=== PATIENT | male | born 1960 | race Caucasian/White ===

== ENCOUNTER 2024-09-25 13:45 | Outpatient (RCR) | payer BC, SELFPAY | END 2024-11-06 16:16 | disposition home or self-care (01) | PROVIDERS: PCP Family Medicine; Visit Provider Family Medicine | DX: M54.2 Cervicalgia (principal); G89.29 Other chronic pain; M79.12 Myalgia of auxiliary muscles, head and neck; Z51.89 Encounter for other specified aftercare | CPT/HCPCS: 97110; 97112; 97161 ==

== ENCOUNTER 2024-10-30 17:49 | Emergency (ER) | payer BC, SELFPAY ==
--- OUTSIDE RECORDS SUMMARY | 2024-10-30 17:51 | XMS_ITS | Referral Summary ---
Author Organization [facility] Address [address] [place] [address] Care Team Providers Care Head Orthopedic Team Physician Name Role Phone Gordo Pollard MD Primary Care Provider Unavail able Allergies Active Allergy Reactions Criticality Noted Date Comments Dust/Dust Mites (Robert) Wheezing 11/06/2016 Ragweed Pollen 06/01/2019 Medications mesalamine (ASACOL HD) 800 mg oral tablet, delayed release Take 3,200 mg by mouth once daily. Active fexofenadine (TANG ALLERGY) 180 mg oral tablet Take 180 mg by mouth once daily. Active fluticasone HFA 110mcg/puff (FLOVENT) 110 mcg/actuation Inhl HFAA inhaler Inhale 2 puffs once daily. Active albuterol HFA (PROVENTIL;SOCORRO SUSAN HFA) 90 mcg/actuation Inhl inhaler Inhale 2 puffs every 4 (four) hours as needed. Active cholecalciferol, vitamin D3, 1000 unit (25 mcg) oral tablet Take 25 mcg by mouth once daily. Unsure of dose Active oxyCODONE, immediate release, (ROXICODONE) 5 mg oral tablet Take 1 tablet (5 mg) by mouth every 6 (six) hours as needed. 10 tablet 08/15/2019 12:42 PM SENIOR CAREGIVER 9 Active oxyCODONE-acetam inophen (PERCOCET) 5-325 mg oral tablet Take 1-2 tablets by mouth every four (4) to six (6) hours as needed for Pain. 3 tablet 08/22/2019 2:38 PM SENIOR CAREGIVER 9 Active doxycycline monohydrate (ADOXA) 100 mg oral Take 1 each (100 mg) by mouth twice a day with breakfast and dinner. 20 tablet 08/22/2019 2:38 PM SENIOR CAREGIVER 9 Active Active Problems Problem Noted Date Diagnosed Date S/P prostatectomy 11/09/2016 Crohn's disease 11/09/2016 Prostate cancer 11/09/2016 Immunizations Name Administration Dates Next Due Influenza recombinant (FluBlok Quadrivalent PF) 08/15/2019 Influenza split virus quadrivalent 07/09/2016 Social History Tobacco Use Types Packs/Day Years Used Date Smoking Tobacco: Former Cigarettes Q uit: 01/05/2018 Smokeless Tobacco: Never Tobacco Cessation:Ready to Q uit: Yes Alcohol Use Standard Drinks/Week Comments Yes 0 (1 standard drink = 0.6 oz pur e alcohol) 2 beers 4 nights a week Sex and Gender Information Value Date Recorded Sex Assigned at Not on file Legal Sex Male 11:00 AM CDT Gender Identity Not on file Sexual Orientation Not on file Last Filed Vital Signs Vital Sign Reading Time Taken Comments Blood Pressure 150/82 08/22/2019 4:30 PM SENIOR CAREGIVER Pulse 70 08/22/2019 4:30 PM SENIOR CAREGIVER Temperature 36.5 C (97.7 F) 08/22/2019 4:30 PM SENIOR CAREGIVER Respiratory Rate 12 08/22/2019 4:30 PM SENIOR CAREGIVER Oxygen Saturation 95% 08/22/2019 4:30 PM SENIOR CAREGIVER Inhaled Oxygen Concentration - - Weight 93 kg (205 lb 0.4 oz) 08/22/2019 11:00 AM SENIOR CAREGIVER Height 177.8 cm (5' 10) 08/22/2019 11:16 AM SENIOR CAREGIVER Body Mass Index 29.42 08/22/2019 11:00 AM SENIOR CAREGIVER Plan of Treatment Not on file Medical Devices Implanted Type Area Ticketing Agent Device Identifier Shelf Expiration Date Model / Serial / Lot Cl [place] Gustabo - [id number] Implanted:Qty: 1 on 08/14/2019 by Nick Mahajan MD at [facility] Penile N/A: Penis Coloplast Isabelle 04/26/2024 [id number] / / [id number] Assembly Kit Gustabo - [id number] Implanted:Qty: 1 on 08/14/2019 by Nick Mahajan MD at [facility] Supply N/A: Penis Coloplast Isabelle 04/27/2024 [id number] / / [id number] Titan, Infrapubic Zero Degree Angle Cylinder Set With Pump Implanted:Qty: 1 on 08/14/2019 by Nick Mahajan MD at [facility] N/A: Penis Coloplast Isabelle [id number] 12/15/2023 [id number] / / [id number] Insurance [place] [id number] [facility] [place] [address] Advance Directives For more information, please contact: [phone] * Full Code (Latest Code Status on File) Date Activated Date Inactivated Comments 11/09/2016 10:46 PM 11/13/2016 4:52 PM Question Answer Comments How was code status determined? Patient Care Teams Head Orthopedic Team Physician Relationship Specialty Start Date End Date Gordo Pollard MD PCP - General 12/16/18
--- OUTSIDE RECORDS SUMMARY | 2024-10-30 17:51 | XMS_ITS | Clinical Summary ---
Author Organization [facility] Address [address] [place] [address] Care Team Providers Care Fish Cake Maker Name Role Phone Gordo Pollard MD Primary [...] as needed. 10 tablet 08/15/2019 12:42 PM ULTIMATE HOOPS REFEREE 9 Active oxyCODONE-acetam inophen (PERCOCET) 5-325 mg oral tablet Take 1-2 tablets by mouth every four (4) to six (6) hours as needed for Pain. 3 tablet 08/22/2019 2:38 PM ULTIMATE HOOPS REFEREE 9 Active doxycycline monohydrate (ADOXA) 100 mg oral Take 1 each (100 mg) by mouth twice a day with breakfast and dinner. 20 tablet 08/22/2019 2:38 PM ULTIMATE HOOPS REFEREE 9 Active Active Problems Problem Noted Date Diagnosed Date S/P prostatectomy 11/09/2016 Crohn's disease 11/09/2016 Prostate cancer 11/09/2016 Immunizations Name Administration Dates Next Due Influenza recombinant (FluBlok Quadrivalent PF) 08/15/2019 Influenza split virus quadrivalent 07/09/2016 Family History Medical History Relation Comments Prostate Cancer Brother Diabetes Father High Blood Pressure Father Cervical Cancer Mother Relation Status Comments Brother Father Mother Social History Tobacco Use Types Packs/Day Years [...] Comments Blood Pressure 150/82 08/22/2019 4:30 PM ULTIMATE HOOPS REFEREE Pulse 70 08/22/2019 4:30 PM ULTIMATE HOOPS REFEREE Temperature 36.5 C (97.7 F) 08/22/2019 4:30 PM ULTIMATE HOOPS REFEREE Respiratory Rate 12 08/22/2019 4:30 PM ULTIMATE HOOPS REFEREE Oxygen Saturation 95% 08/22/2019 4:30 PM ULTIMATE HOOPS REFEREE Inhaled Oxygen Concentration - - Weight 93 kg (205 lb 0.4 oz) 08/22/2019 11:00 AM ULTIMATE HOOPS REFEREE Height 177.8 cm (5' 10) 08/22/2019 11:16 AM ULTIMATE HOOPS REFEREE Body Mass Index 29.42 08/22/2019 11:00 AM ULTIMATE HOOPS REFEREE Plan of Treatment Health Maintenance Due Date Last Done Comments AAA Ultrasound Screening 1960 Colonoscopy 1960 Hepatitis C Screening 1960 Lipid Screening 1960 Depression Assessment (PHQ-2) 1959 Pneumococcal 50+ Years (1 of 1 - PCV) 02/29/2008 Zoster Vaccine (1 of 2) 02/29/2008 Yearly Review of HCD 08/19/2020 08/20/2019, 07/06/2019, 04/24/2019, Additional history exists COVID-19 Vaccine ( - 2023-2 5 season) 2024 Influenza Vaccine (#1) 2024 9, 09/02/2016, 07/09/2016, Additional history exists Adult Tetanus Booster 01/17/2025 01/17/2015 , 08/26/2003, 05/21/1991 RSV Vaccines (1 - 1-dose 75+ series) 2033 Medical Devices Implanted Type Area Electrical Prospecting Supervisor Device Identifier Shelf Expiration Date Model / Serial / Lot Cl [employer] Titan - [id number] Implanted:Qty: 1 on 08/14/2019 by Nick Mahajan MD at [facility] Penile N/A: Penis Coloplast Isabelle 04/26/2024 [id number] / / [id number] Assembly Kit Titan - [id number] Implanted:Qty: 1 on 08/14/2019 by Nick Mahajan MD at [facility] Supply N/A: Penis Coloplast Isabelle 04/27/2024 [id number] / / [id number] Titan, Infrapubic Zero Degree Angle Cylinder Set With Pump Implanted:Qty: 1 on 08/14/2019 by Nick Mahajan MD at [facility] N/A: Penis Coloplast Isabelle [id number] 12/15/2023 [id number] / / [id number] [place] [address] [place] [address] Advance Directives For more information, please contact: [phone] * Full Code (Latest Code Status on File) Date Activated Date Inactivated Comments 11/09/2016 10:46 PM 11/13/2016 4:52 PM Question Answer Comments How was code status determined? Patient Care Teams Fish Cake Maker Relationship Specialty Start Date End Date Gordo Pollard MD PCP - General 12/16/18
--- OUTSIDE RECORDS SUMMARY | 2024-10-30 17:51 | XMS_ITS | Clinical Summary ---
Author Organization [facility] Address [place], [place] [address] Care Team Providers Care Shift Coordinator Name Role Phone Fermin Glynn MD Primary Care Provider Allergies Active Allergy Reactions Criticality Noted Date Comments Dust Mites Low 04/16/2011 Pollen Extracts Runny Nose 01/02/2019 Ragweed Pollen Wheezing 05/26/2019 Medications fexofenadine (TANG) 180 mg tablet Take 1 tablet by mouth. One tab PO Q HS X 2 month supply 60 tablet 3 02/22/20 11 Active ipratropium (ATROVENT NASAL) 21 mcg (0.03 %) nasal sprayIndications :Post-nasal drip USE 2 SPRAYS IN EACH NOSTRIL THREE TIMES DAILY 90 mL 3 02/10/20 23 Active fluticasone (50 mcg per actuation) nasal solution (FLONASE) Inhale 1 [place] into affected nostril(s) once daily. Active CPAPIndications: IACHA (obstructive sleep apnea) CPAP machine for home use at pressure 7-15cmw, CPAP mask- mask of choice, fit to comfort one per 3 months 1 Each 11 01/30/20 24 Active mesalamine (LIALDA) 1.2 gram delayed-release tabletIndication s:Crohn's disease of both small and large intestine without complication (HC) Take 4 Tablets (4.8 g) by mouth once daily with a meal. 360 Tablet 3 03/18/20 24 Active fluticasone propion-salmeter oL (Wixela Inhub) 250-50 mcg/Dose diskus inhalerIndicatio ns:Mild persistent asthma, unspecified whether complicated INHALE 1 PUFF BY MOUTH TWICE DAILY 180 Each 3 08/10/20 24 Active citalopram (CELEXA) 20 mg tabletIndication s:Vitamin D deficiency Take 1 Tablet (20 mg) by mouth once daily in the morning. 90 Tablet 3 09/08/20 24 Active albuterol HFA (PRO-AIR; VENTOLIN; PROVENTIL) 90 mcg/actuation inhalerIndicatio ns:Mild persistent asthma without complication INHALE 1 TO 2 PUFFS BY MOUTH EVERY 4 HOURS NEEDED FOR SHORTNESS OF BREATH 6.7 g 1 09/11/20 24 Active omeprazole (PRILOSEC) 20 mg Delayed-Release capsuleIndicatio ns:Gastroesophag eal reflux disease with esophagitis without hemorrhage Take 1 Capsule (20 mg) by mouth once daily before a meal. Take 30-60 minutes before a meal/food once a day. 90 Capsule 3 10/19/19 25 Active polyethylene glycol-electroly te (GOLYTELY) 236-22.74-6.74 -5.86 gram suspensionIndica tions:Encounter for screening colonoscopy Drink 2 liters (half the bottle) the day before colonoscopy and 2 liters (remaining prep) 6 hours prior to colonoscopy appointment. 4000 mL 09/09/20 24 025 Discontin ued(*Med complete/ Regimen complete/ Level of care change) predniSONE (DELTASONE) 20 mg tabletIndication s:Bronchospasm 2 tablets p.o. daily for 5 days. 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 08/28/2022 Crohn's disease of small intestine without compl ication 04/24/2021 Overview (03/12/2023): Colonoscopy 03/2023 mild colitis, repeat in 3 years Anxiety and depression 11/02/2020 S/P prostatectomy 2017 for cancer 12/08/2016 Seasonal allergies 01/17/2010 Asthma Resolved Problems Problem Noted Date Diagnosed Date Resolved Date Earlobe lesion, right 03/11/20242023 Sensorineural hearing loss ( SNHL) of left ear with restricted hearing of right ear 08/28/202212/2023 Unspecified sinusitis (chronic) 04/26/2011 04/24/2021 Hypertrophy of prostate with urinary obstruction and other lower urinary tract symptoms (LUTS) 09/21/2008 11/02/2020 Tobacco use disorder 09/21/2008 021 Regional enteritis of large intestine 01/21/2008 04/24/2021 Overview (05/19/2020): Colonoscopy 09/2013 minimal Crohn's disease repeat in 3 years Colonoscopy 09/2016 mild Crohn's colitis, repeat in 3 years Colonoscopy 05/2020 trace inflammation, repeat in 3 years Encounters Date Type Department Care Team Description 10/30/2024 Nurse Triage [facility] [address] [place] [address] Fermin Glynn MD Laceration 10/19/2024 Orders Only [facility] [address] [place] [address] Conrad Mccoy MD <No scans attached> 10/14/2024 9:30 AM [facility] - 10/14/2024 11:59 PM [facility] Hospital Encounter Conrad Mccoy MD 10/14/2024 Lab Requisition [facility] [phone] Conrad Mccoy MD 10/14/2024 Orders Only [place] [address] [place] [id number] Conrad Mccoy MD <No scans attached> 10/14/2024 Orders Only [facility] [address] [place] [address] Fermin Glynn MD 1 scan: (1-Ord) [facility], UPPER GI ENDOSCOPY, 10/14/2024 10/14/2024 Surgery [place] [id number] [place] [address] Conrad Mccoy MD colonoscopy, screening 10/09/2024 10:30 AM [facility] Office Visit [facility] [address] [place] [address] Fermin Glynn MD Preoperative Exam (DOS: 10/14/2024, EGD, Dr. Mccoy, [facility]) 10/09/2024 Travel 10/06/2024 Telephone [facility] [address] [place] [address] Conrad Mccoy MD Appointment Reminder (EGD at [facility] 10/14/24) 10/05/2024 Travel 09/11/2024 Refill [facility] [address] [place] [address] Fermin Glynn MD Refill Request (Albuterol Hfa) 09/08/2024 11:45 AM [facility] Office Visit [facility] [address] [place] [address] Fermin Glynn MD Physical (64 year old); Sinus Problem (Post nasal drip, sinus congestion, cough, wheezing, started about 3 weeks ago) 09/08/2024 Telephone [facility] [address] [place] [address] Conrad Mccoy MD Procedure 09/08/2024 Travel 08/20/2024 10:45 AM [facility] Orders Only [facility] [address] [place] [address] Lab 08/20/2024 Travel 08/07/2024 Refill [facility] [address] [place] [address] Fermin Glynn MD Refill Request (Wixela Inhub) 08/07/2024 Refill [facility] [address] [place] [address] Fermin Glynn MD Refill Request (Wixela Inhub) 08/03/2024 Travel from Last 3 Months Immunizations Name Administration Dates Next Due COVID-19 VACCINE SPIKEVAX (M ODERNA 50MCG/0.5ML) 12YO+ PFS 09/08/2024 COVID-19 vaccine (Moderna 100mcg/0.5mL) PF, MDV 08/30/2021,01/25/2021,12/19/2020 COVID-19 vaccine (Pfizer-Bio NTech 30mcg/0.3mL) 12YO+ VIDYA-SUCROSE PF, MDV 01/11/2022 INFLUENZA, IIV3 PF (AGE >= 6 MO) 08/15/2019 Influenza Virus, Unspecified 07/09/2016 Influenza, IIV3 (Age 6-35 mos) 09/02/2016 Influenza, IIV3 (Age >=3 years) 07/09/2016,09/09 Influenza, IIV4 08/29/2022,,08/08/2020,2018,11/21/2018 Influenza, Inactivated IIV3 (Age 65+ Years) Preserv Free 07/10/2024 Pneumococcal Conj 20-valent (Prevnar 20) 01/11/2022 Td (Age >=7 Years) 08/26/2003,05/21/1991 Tdap 04/18/2021,01/17/2015 Zoster (Shingrix-RZV, recombinant) 07/05/2020, Family History Medical History Relation Name Comments Cancer-prostate Brother 1 Good Health Brother 4 Good Health Brother 5 Good Health Brother 6 Diabetes Father Hypertension Father Cancer Mother cervical GI Disease Mother radiation injur y to bowel Psychiatric illness Sister 4 anxiety Good Health Sister 5 Good Health Sister 6 Good Health Son 2 Anesthesia Problem No Family History Relation Name Status Comments Brother 1 Alive Brother 2 Alive Brother 3 Alive Brother 4 Brother 5 Brother 6 Father Alive Mother Alive Sister 1 Alive Sister 2 Alive Sister 3 Alive Sister 4 Sister 5 Sister 6 Son 1 Alive Son 2 Social History Tobacco Use Types Packs/Day Years Used Date Smoking Tobacco: Former Cigarettes 0.5 25 0 01/05/1993 - 01/05/2018 Smokeless Tobacco: Never Tobacco Cessation:Counseling Given: No Alcohol Use Standard Drinks/Week Comments Yes 7 (1 standard drink = 0.6 oz pure alcohol) one to two beers 3-4 days per week PHQ-2 Answer Date Recorded PHQ-2 TOTAL SCORE 0 07/10/2024 Social Connections Answer Date Recorded Do you often feel lonely or isolated from those around you? 0 10/09/2024 Financial Resource Strain Answer Date R ecorded Difficulty of Paying Living Expenses 3 10/09/2024 Difficulty of Paying Living Expenses Not on file 10/09/2024 Food Insecurity Answer Date Recorded Do you worry your food will run out before you are able to buy more? 1 10/09/2024 Transportation Needs Answer Date Record ed Does lack of transportation keep you from medica l appointments? 1 10/09/2024 Does lack of transportation keep you from work, meetings or getting things that you need? 1 10/09/2024 Housing Stability Answer Date Recorded What is your housing situation today? 1 10/09/2024 Interpersonal Safety Answer Date Record ed Are you being hit, kicked, p ushed or yelled at (see row info)? Unable to assess, family/SO in room. 03/11/2024 Interpersonal Safety Abuse 12 - 18 Not on file 03/11/2024 Interpersonal Safety Ambulat ory Vulnerability Not on file 03/11/2024 Utilities Answer Date Recorded Do you have trouble paying f or utilities (for example, heat, electricity, water, phone)? 1 10/09/2024 Sex and Gender Information Value Date Recorded Sex Assigned at Not on file Legal Sex Male 5:49 AM [facility] Gender Identity Not on file Sexual Orientation Not on file Occupation Industry Job Start Date Job End Date Not on file Not on file Not on file Not on file Obstetrics History Last Filed Vital Signs Vital Sign Reading Time Taken Comments Blood Pressure 134/80 10/09/2024 10:32 AM [facility] Pulse 59 10/09/2024 10:32 AM [facility] Temperature 36.7 C (98 F) 03/12/2024 8:00 AM CDT Respiratory Rate 16 03/12/2024 8:00 AM CDT Oxygen Saturation 99% 10/09/2024 10:32 AM [facility] Inhaled Oxygen Concentration - - Weight 98.5 kg (217 lb 3.2 oz) 10/09/2024 10:32 AM [facility] Height 177 cm (5' 9.69) 10/09/2024 10:32 AM [facility] Body Mass Index 31.45 10/09/2024 10:32 AM [facility] Plan of Treatment Health Maintenance Due Date Last Done Comments RSV vaccine for adults or (1 - Risk 60-74 years 1-dose series) 2018 AAA screening age 65-74 2023 COVID-19 vaccine series ( season) 2024 09/08/2024, 08/29/2022, 01/11/2022, Additional history exists Depression screening for age 12+ 07/10/2025 07/10/2024, 04/24/2021, 11/30/2020, Additional history exists BMI (ht and wt on same day) for age 18+ 10/09/2025 10/09/2024, 09/08/2024, 07/10/2024, Additional history exists Colonoscopy through age 75 03/05/202603/05, 03/05/2023, 05/18/2020, Additional history exists Lipids for age 45-75 08/20/2029 08/20/2024, 10/29/2022, 04/24/2021, Additional history exists Tetanus booster 04/18/2031 04/18/2021, 01/05, 08/26/2003, Additional history exists Hepatitis C screening for ag e 18-79 Completed 04/01/2018 Zoster (shingles) series for age 50+ Completed 07/05/2020, 04/22/2020 Tdap Completed 04/18/2021, 01/17/2015 Pneumococcal series for age 50+ Completed 2 Influenza for age 65+ Completed 07/10/2024 , 08/29/2022, 07/22/2021, Additional history exists Medical Devices Implanted Type Area Cable 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 Determine d: Nose [employer] 09/03/2025 [id number] / [id number] Procedures Procedure Name Priority Date/Time Associated Diagnosis Comments LAB TRACKING EVENT Routine 10/14/2024 10:57 AM [facility] PATH TISSUE EXAM Routine 10/14/2024 10:57 AM [facility] ESOPHAGOGASTRODUODENOSCOPY Routine 10/14 12:00 AM [facility] Dysphagia, unspecified type BASIC METABOLIC PANEL Routine 08/20/2024 10:40 AM [facility] Elevated blood-pressure reading without diagnosis of hypertension LIPID PANEL W REFLEX MEASURE D LDL Routine 08/20/2024 10:40 AM [facility] Hyperlipidemia, unspecified hyperlipidemia type PSA (TOTAL) ([facility]) Routine 08/20/2024 10:40 AM [facility] Prostate cancer (HC) COLONOSCOPY 03/05/2023 8:31 AM CDT ANTI HCV Routine 04/01/2018 9:47 AM CDT Need for hepatitis C screening test SURGICAL PROCEDURE (TYPE PROCEDURE DESCRIPTION BELOW) Encounter for screening colonoscopy from Last 3 Months or Most Recently Relevant to Health Maintenance Results * LAB TRACKING EVENT (10/14/2024 10:57 AM [facility]) Other (Other) Client Collect / Unknown 10/14/2024 10:57 AM [facility] 10/14/2024 5:55 PM [facility] us Conrad Mccoy MD LAB BILL ONLY Final Res ult [facility] [address] [place] [address], * PATH TISSUE EXAM (10/14/2024 10:57 AM [facility]) Case Report Pathology Report Case: [id number] Authorizing Provider: Conrad Mccoy MD Collected: 10/14/2024 1057 Ordering Location: [facility] Received: 10/14/20241953 Pathologist: Ambrosio Blake MD Specimens: A) - Duodenum B) - Gastric Biopsy C) - Distal Esophagus Biopsy D) - Mid Esophagus Biopsy 10/16/2024 12:55 PM [facility]-C ENTRAL LABORATORY Final Diagnosis A) DUODENUM, BIOPSY: 1. Normal duodenal mucosa 2. Negative for celiac disease and other enteropathy B) STOMACH, BIOPSY: 1. Normal gastric antral and body mucosae 2. Negative for Helicobacter C) ESOPHAGUS, DISTAL, BIOPSY: 1. Mild active esophagitis, consistent with reflux esophagitis 2. Negative for eosinophilic esophagitis 3. Negative for columnar mucosa D) ESOPHAGUS, MID, BIOPSY: 1. Normal esophageal squamous mucosa 2. Negative for reflux changes and eosinophilic esophagitis 3. Negative for columnar mucosa 10/16/2024 12:55 PM [facility] ENTRAL LABORATORY Clinical Information 64-year-old with history of Crohn's disease, has dysphagia that prompted upper GI endoscopy which showed LA grade a distal esophageal changes, 3 cm hiatal hernia, and endoscopically normal stomach and duodenum. Biopsies obtained to assess for microscopic disease. 10/16/2024 12:55 PM [facility] ENTRAL LABORATORY Gross Description A) Received in formalin are 2 gonsalez mucosal fragments averaging 4 mm in greatest dimension, which are entirely submitted in one cassette. It is labeled with the patient's name and designated duodenum. B) Received in formalin are 4 gonsalez mucosal fragments ranging from 1 mm to 5 mm in greatest dimension, which are entirely submitted in one cassette. It is labeled with the patient's name and designated gastric antrum and body. C) Received in formalin are 3 gonsalez mucosal fragments ranging from 1 mm to 5 mm in greatest dimension, which are entirely submitted in one cassette. It is labeled with the patient's name and designated distal esophagus. D) Received in formalin are 4 gonsalez mucosal fragments averaging 3 mm in greatest dimension, which are entirely submitted in one cassette. It is labeled with the patient's name and designated mid esophagus. Lynette Ervin 10/15/2024 2:33 PM 10/16/2024 12:55 PM [facility] ENTRAL LABORATORY Microscopic Description The final diagnosis is based on microscopic examination of appropriate sections of all specimens. 10/16/2024 12:55 PM [facility] LAB[facility] Additional Information Interpreted at [facility], Central Laboratory - [address], [place] [address] 10/16/2024 12:55 PM [facility]-C ENTRAL LABORATORY Other (Duodenum) 10/14/2024 10:57 AM [facility] 10/14/2024 7:54 PM [facility] Specimen (specimen) GASTRIC BIOPSY SPECIMEN / Unknown 10/14/2024 10:59 AM [facility] 10/14/2024 7:54 PM [facility] Specimen (specimen) (Distal Esophagus Biopsy) 10/14/2024 11:01 AM [facility] 10/14/2024 7:54 PM [facility] Specimen (specimen) (Mid Esophagus Biopsy) 10/14/2024 11:02 AM [facility] 10/14/2024 7:54 PM [facility] us Conrad Mccoy MD PATHOLOGY/CYTOLOGY Final Result Performing Organization Address City/[facility] Co de Phone Number [facility] [address] [place] [address], * ESOPHAGOGASTRODUODENOSCOPY (10/14/2024 12:00 AM [facility]) us Fermin Glynn MD GI PROCEDURE ORD Final Result * PSA (TOTAL) ([facility]) (08/20/2024 10:40 AM [facility]) PSA, TOTAL <0.04 < OR = 4.00 ng/mL [facility] Comment: The total PSA value from this assay system is standardized against the WHO standard. The test result will be approximately 20% lower when compared to the equimolar-standardized total PSA (Enrique [place]). Comparison of serial PSA results should be interpreted with this fact in mind. This test was performed using the Siemens chemiluminescent method. Values obtained from different assay methods cannot be used interchangeably. PSA levels, regardless of value, should not be interpreted as absolute evidence of the presence or absence of disease. Blood BLOOD SPECIMEN / Unknown 08/20/2024 10:40 AM [facility] 08/20/2024 10:45 AM [facility] Narrative [facility] - 08/21/2024 6:33 AM [facility] FASTING:YES FASTING: YES us Fermin Glynn MD SEND OUTS Final Result [facility] [address] [place] [address], [facility] [address] [place] [address] * (ABNORMAL) LIPID PANEL W REFLEX MEASURED LDL (08/20/2024 10:40 AM [facility]) CHOLESTEROL, TOTAL 222(H) <200 mg/dL [facility] HDL CHOLESTEROL 56 > OR = 40 mg/dL [facility] TRIGLYCERIDES 123 <150 mg/dL [facility] LDL-CHOLESTEROL 141(H) mg/dL (calc) [facility] Comment: Reference range: <100 Desirable range <100 mg/dL for primary prevention; <70 mg/dL for patients with CHD or diabetic patients with > or = 2 CHD risk factors. LDL-C is now calculated using the Maru calculation, which is a validated novel method providing better accuracy than the Friedewald equation in the estimation of LDL-C. Conrad SS et al. ROXANNE. 2013;310(19): 1051-8348 (http://education.Zervant/faq/FVH739) CHOL/HDLC RATIO 4.0 <5.0 (calc) [facility] NON HDL CHOLESTEROL 166(H) <130 mg/dL (calc) [facility] Comment: For patients with diabetes plus 1 major ASCVD risk factor, treating to a non-HDL-C goal of <100 mg/dL (LDL-C of <70 mg/dL) is considered a therapeutic option. Blood BLOOD SPECIMEN / Unknown 08/20/2024 10:40 AM [facility] 08/20/2024 10:45 AM [facility] Narrative [facility] - 08/21/2024 4:10 AM [facility] FASTING:YES FASTING: YES Fermin Glynn MD CHEMISTRY Final Result [facility] [address] [place] [address], [facility] [address] [place] [address] * BASIC METABOLIC PANEL (08/20/2024 10:40 AM [facility]) GLUCOSE 91 65 - 99 mg/dL [facility] Comment: Fasting reference interval UREA NITROGEN (BUN) 15 7 - 25 mg/dL [facility] CREATININE 0.92 0.70 - 1.35 mg/dL [facility] EGFR 92 > OR = 60 mL/min/1. 73m2 [facility] BUN/CREATININE RATIO SEE NOTE: 6 - 22 (calc) [facility] Comment: Not Reported: BUN and Creatinine are within reference range. SODIUM 136 135 - 146 mmol/L [facility] POTASSIUM 4.5 3.5 - 5.3 mmol/L [facility] CHLORIDE 104 98 - 110 mmol/L [facility] CARBON DIOXIDE 25 20 - 32 mmol/L [facility] ELECTROLYTE BALANCE 7 7 - 17 mmol/L (calc) [facility] CALCIUM 9.4 8.6 - 10.3 mg/dL [facility] Blood BLOOD SPECIMEN / Unknown 08/20/2024 10:40 AM [facility] 08/20/2024 10:45 AM [facility] Narrative [facility] - 08/21/2024 4:10 AM [facility] FASTING:YES FASTING: YES Fermin Glynn MD CHEMISTRY Final Result [facility] [address] [place] [address], [facility] [address] [place] [address] * COLONOSCOPY (03/05/2023 8:31 AM CDT) 03/05/2023 8:31 AM CDT Narrative Transcriptions Conrad Mccoy MD - 03/05/2023 10:08 AM CDT Patient Name: Froy Martinez Procedure Date: 03/05/2023 Gender: Male Date of : 1960 Admit Type: Outpatient Procedure: Colonoscopy Proceduralist: Conrad Mccoy MD , Hiral Cho (Nurse), Bernice Castaneda (Nurse) Indications/Pre-Op Diagnosis: High risk colon cancer surveillance: Crohn's colitis of 8 (or more) years duration with one-third (or more) of the colon involved Medications: Fentanyl 100 micrograms IV, Midazolam 4 mgIV, The level of sedation administered wasmoderate Procedure Description: The patient had risks, benefits and alternatives explained to andgave informed consent. The patient had a stable cardiopulmonary status and judged an adequate candidate for conscious sedation. The endoscope [id number]-[id number] [id number] was passed through the anus andadvanced to 4 cm into the ileum. The colonoscopy was performed without difficulty. The patient tolerated the procedure well. The quality ofthe bowel preparation was good. The terminal ileum, ileocecal valve, appendiceal orifice, and rectum were photographed. Complications: No immediate complications. Estimated Blood Loss & Specimen: Estimated blood loss: none. Specimen collected - Yes and sent to Laboratory Findings: The perianal and digital rectal examinations were normal. The terminal ileum appeared normal. The descending colon, transverse colon and ascending colon appeared normal. Background biopsies were taken for histology with a coldforceps from the ascending colon, transverse colon, descending colon and rectosigmoid colon. These biopsy specimens from the ascending colon, transverse colon, descending colon and rectosigmoid colon were sentto Pathology. A patchy area of mildly erythematous mucosa was found in the recto-sigmoid colon. The exam was otherwise without abnormality. Impressions/Post-Op Diagnosis: - The examined portion of the ileum was normal. - The descending colon, transverse colon and ascending colon arenormal. - Erythematous mucosa in the recto-sigmoid colon. - The examination was otherwise normal. - Background biopsies were taken from the ascending colon, transverse colon, descending colon and rectosigmoid colon. Recommendation: - Patient has a contact number available for emergencies. The signsand symptoms of potential delayed complications were discussed with the patient. Return to normal activities tomorrow. Written discharge instructions were provided to the patient. - Resume previous diet. - Continue present medications. - Await pathology results. - Repeat colonoscopy is recommended. The colonoscopy date will be determined after pathology results from today's exam become available for review. Moderate Sedation: A time out was performed before the procedure. Moderate (conscious) sedation was administered by the endoscopy nurse and supervised bythe endoscopist. The following parameters were monitored: oxygensaturation, heart rate, blood pressure, EKG, CO2, respiratory rate, adequacy of pulmonary ventilation and reponse to care. Please refer to the patient's medical record flowsheets and nursing notes for moderate sedation details. Total physician intraservice time was 26 minutes. Conrad Mccoy MD 03/05/2023 10:08:40 AM This report has been signed electronically. Note Initiated On: 03/05/2023 8:31 AM Procedure Code(s): --- Professional --- 93627, Colonoscopy, flexible; with biopsy, single or multiple Diagnosis Code(s): --- Professional --- K50.10, Crohn's disease of large intestine without complications K63.89, Other specified diseases ofintestine CPT copyright 2021 [employer]. All rights reserved. The codes documented in this report are preliminary and upon maintenance analyst reviewmay be revised to meet current compliance requirements. Scope In: 9:34:47 AM Scope Withdrawal Time 0 hours 18 minutes 39 seconds Scope Out: 9:57:37 AM us Conrad Mccoy MD PROCEDURE ORD Final Res ult * ANTI HCV [88422.2] (04/01/2018 9:47 AM CDT) HEPATITIS C ANTIBODY Non-React tonja Non-React tonja 04/01/2018 5:31 PM CDT [facility] Comment:Antibodies to HCV no t detected; does not exclude the possibility of exposure to HCV. Blood BLOOD SPECIMEN / Unknown Venipuncture / Unknown 04/01/2018 9:47 AM CDT 04/01/2018 9:47 AM CDT us Gordo Pollard MD SEND OUTS Final Resu lt [facility] [address] [place] [address], from Last 3 Months or Most Recently Relevant to Health [place] [address] [facility] ADVANTAGE Advance Directives * Full Code (Latest Code Status on File) Date Activated Date Inactivated Comments 03/11/2024 10:00 AM 03/12/2024 10:44 AM Question Answer Comments Code Status Discussion: Reviewed Preferences Care Teams Shift Coordinator Relationship Specialty Start Date End Date Fermin Glynn MD [address] [place] [address] PCP - General Family Practice 11/02/20
[2024-10-30 17:54] VITALS: BP 133/78; PULSE 67; RESP 20; O2SAT 94; BMI 30.1
[2024-10-30] MEDS: EPINEPHrine 0.3 MG PEN IM (18:02)
[2024-10-30] MEDS: diphenhydrAMINE 50 MG/ML inj IVP (18:09)
[2024-10-30] MEDS: FAMOTIDINE 10 MG/ML inj 20 MG IVP (18:11)
[2024-10-30] MEDS: METHYLPREDNISOLONE SOD SUCC 62.5 MG/ML (125) 125 MG IVP (18:13)
--- OUTSIDE RECORDS SUMMARY | 2024-10-30 18:31 | XMS_ITS | Clinical Summary ---
Author Organization [facility] Address [place], [place] [address] Care Team Providers Care Tinware Lithograph Press Operator Name Role Phone Fermin Glynn MD Primary [...] per actuation) nasal solution (FLONASE) Inhale 1 Tippo into affected nostril(s) once daily. Active CPAPIndications: AICHA (obstructive sleep apnea) CPAP machine for home [...] Department Care Team Description 10/30/2024 Nurse Triage [facility] [address] [place] [address] Fermin Glynn MD Laceration 10/19/2024 Orders Only [facility] [address] [place] [address] Conrad Mccoy MD <No scans attached> 10/14/2024 9:30 AM RACING SECRETARY AND HANDICAPPER - 10/14/2024 11:59 PM RACING SECRETARY AND HANDICAPPER Hospital Encounter Conrad Mccoy MD 10/14/2024 Lab Requisition [facility] [phone] Conrad Mccoy MD 10/14/2024 Orders Only [place] [address] [place] [id number] Conrad Mccoy MD <No scans attached> 10/14/2024 Orders Only [facility] [address] [place] [address] Fermin Glynn MD 1 scan: (1-Ord) [facility], UPPER GI ENDOSCOPY, 10/14/2024 10/14/2024 Surgery [place] [id number] [place] [address] Conrad Mccoy MD colonoscopy, screening 10/09/2024 10:30 AM RACING SECRETARY AND HANDICAPPER Office Visit [facility] [address] [place] [address] Fermin Glynn MD Preoperative Exam (DOS: 10/14/2024, EGD, Dr. Mccoy, [facility]) 10/09/2024 Travel 10/06/2024 Telephone [facility] [address] [place] [address] Conrad Mccoy MD Appointment Reminder (EGD at [facility] 10/14/24) 10/05/2024 Travel 09/11/2024 Refill [facility] [address] [place] [address] Fermin Glynn MD Refill Request (Albuterol Hfa) 09/08/2024 11:45 AM RACING SECRETARY AND HANDICAPPER Office Visit [facility] [address] [place] [address] Fermin Glynn MD Physical (64 year old); Sinus Problem (Post nasal drip, sinus congestion, cough, wheezing, started about 3 weeks ago) 09/08/2024 Telephone [facility] [address] [place] [address] Conrad Mccoy MD Procedure 09/08/2024 Travel 08/20/2024 10:45 AM RACING SECRETARY AND HANDICAPPER Orders Only [facility] [address] [place] [address] Lab 08/20/2024 Travel 08/07/2024 Refill [facility] [address] [place] [address] Fermin Glynn MD Refill Request ([facility]) 08/07/2024 Refill [facility] [address] [place] [address] Fermin Glynn MD Refill Request ([facility]) [...] on file Legal Sex Male 5:49 AM RACING SECRETARY AND HANDICAPPER Gender Identity Not on file Sexual Orientation Not on file Occupation Industry Job Start Date Job End Date Not on file Not on file Not on file Not on file Obstetrics History Last Filed Vital Signs Vital Sign Reading Time Taken Comments Blood Pressure 134/80 10/09/2024 10:32 AM RACING SECRETARY AND HANDICAPPER Pulse 59 10/09/2024 10:32 AM RACING SECRETARY AND HANDICAPPER Temperature 36.7 C (98 F) 03/12/2024 8:00 AM CDT Respiratory Rate 16 03/12/2024 8:00 AM CDT Oxygen Saturation 99% 10/09/2024 10:32 AM RACING SECRETARY AND HANDICAPPER Inhaled Oxygen Concentration - - Weight 98.5 kg (217 lb 3.2 oz) 10/09/2024 10:32 AM RACING SECRETARY AND HANDICAPPER Height 177 cm (5' 9.69) 10/09/2024 10:32 AM RACING SECRETARY AND HANDICAPPER Body Mass Index 31.45 10/09/2024 10:32 AM RACING SECRETARY AND HANDICAPPER Plan of Treatment Health Maintenance Due Date [...] history exists Medical Devices Implanted Type Area Parts Cataloger Device Identifier Shelf Expiration Date Model / Serial / Lot Stent Sinus 8mm Propel Contour Bioabsorb - [id number] Implanted:Qty: 2 on 03/11/2024 by Brea Lord MD at [facility] Determine d: Nose [employer] 09/03/2025 [id number] / / [id number] Procedures Procedure Name Priority Date/Time Associated Diagnosis Comments LAB TRACKING EVENT Routine 10/14/2024 10:57 AM RACING SECRETARY AND HANDICAPPER PATH TISSUE EXAM Routine 10/14/2024 10:57 AM RACING SECRETARY AND HANDICAPPER ESOPHAGOGASTRODUODENOSCOPY Routine 10/14 12:00 AM RACING SECRETARY AND HANDICAPPER Dysphagia, unspecified type BASIC METABOLIC PANEL Routine 08/20/2024 10:40 AM RACING SECRETARY AND HANDICAPPER Elevated blood-pressure reading without diagnosis of hypertension LIPID PANEL W REFLEX MEASURE D LDL Routine 08/20/2024 10:40 AM RACING SECRETARY AND HANDICAPPER Hyperlipidemia, unspecified hyperlipidemia type PSA (TOTAL) ([facility]) Routine 08/20/2024 10:40 AM RACING SECRETARY AND HANDICAPPER Prostate cancer (HC) COLONOSCOPY 03/05/2023 8:31 AM CDT ANTI HCV Routine 04/01/2018 9:47 AM CDT Need for hepatitis C screening test SURGICAL PROCEDURE (TYPE PROCEDURE DESCRIPTION BELOW) Encounter for screening colonoscopy from Last 3 Months or Most Recently Relevant to Health Maintenance Results * LAB TRACKING EVENT (10/14/2024 10:57 AM RACING SECRETARY AND HANDICAPPER) Other (Other) Client Collect / Unknown 10/14/2024 10:57 AM RACING SECRETARY AND HANDICAPPER 10/14/2024 5:55 PM RACING SECRETARY AND HANDICAPPER us Conrad Mccoy MD LAB BILL ONLY Final Res ult [facility] [address] [place] [address], * PATH TISSUE EXAM (10/14/2024 10:57 AM RACING SECRETARY AND HANDICAPPER) Case Report Pathology Report Case: [id number] Authorizing Provider: Conrad Mccoy MD Collected: 10/14/2024 1057 Ordering Location: [facility] Received: 10/14/20241953 Pathologist: Ambrosio Blake MD Specimens: A) - Duodenum B) - Gastric Biopsy C) - Distal Esophagus Biopsy D) - Mid Esophagus Biopsy 10/16/2024 12:55 PM RACING SECRETARY AND HANDICAPPER [facility]-C ENTRAL LABORATORY Final Diagnosis A) DUODENUM, [...] Negative for columnar mucosa 10/16/2024 12:55 PM RACING SECRETARY AND HANDICAPPER [facility] LABORATORY-C ENTRAL LABORATORY Clinical Information 64-year-old with history of Crohn's disease, has dysphagia that prompted upper GI endoscopy which showed LA grade a distal esophageal changes, 3 cm hiatal hernia, and endoscopically normal stomach and duodenum. Biopsies obtained to assess for microscopic disease. 10/16/2024 12:55 PM RACING SECRETARY AND HANDICAPPER [facility]-C ENTRAL LABORATORY Gross Description A) Received in [...] Ervin 10/15/2024 2:33 PM 10/16/2024 12:55 PM RACING SECRETARY AND HANDICAPPER [facility] LABORATORY-C ENTRAL LABORATORY Microscopic Description The final diagnosis is based on microscopic examination of appropriate sections of all specimens. 10/16/2024 12:55 PM RACING SECRETARY AND HANDICAPPER [facility] LABORATORY-C ENTRAL LABORATORY Additional Information Interpreted at [facility], Central Laboratory - [address], [place] [address] 10/16/2024 12:55 PM RACING SECRETARY AND HANDICAPPER [facility]AT[facility]-C ENTRAL LABORATORY Other (Duodenum) 10/14/2024 10:57 AM RACING SECRETARY AND HANDICAPPER 10/14/2024 7:54 PM RACING SECRETARY AND HANDICAPPER Specimen (specimen) GASTRIC BIOPSY SPECIMEN / Unknown 10/14/2024 10:59 AM RACING SECRETARY AND HANDICAPPER 10/14/2024 7:54 PM RACING SECRETARY AND HANDICAPPER Specimen (specimen) (Distal Esophagus Biopsy) 10/14/2024 11:01 AM RACING SECRETARY AND HANDICAPPER 10/14/2024 7:54 PM RACING SECRETARY AND HANDICAPPER Specimen (specimen) (Mid Esophagus Biopsy) 10/14/2024 11:02 AM RACING SECRETARY AND HANDICAPPER 10/14/2024 7:54 PM RACING SECRETARY AND HANDICAPPER us Conrad Mccoy MD PATHOLOGY/CYTOLOGY Final Result Performing Organization Address City/[facility] Co de Phone Number [facility] [address] [place] [address], * ESOPHAGOGASTRODUODENOSCOPY (10/14/2024 12:00 AM RACING SECRETARY AND HANDICAPPER) us Fermin Glynn MD GI PROCEDURE ORD Final Result * PSA (TOTAL) (QUEST) (08/20/2024 10:40 AM RACING SECRETARY AND HANDICAPPER) PSA, TOTAL <0.04 < OR = 4.00 ng/mL [facility] Comment: The total PSA value from this assay system is standardized against the WHO standard. The test result will be approximately 20% lower when compared to the equimolar-standardized total PSA (Enrique [place]). Comparison of serial PSA results should be interpreted with this fact in mind. This test was performed using the Siemens chemiluminescent method. Values obtained from different assay methods cannot be used interchangeably. PSA levels, regardless of value, should not be interpreted as absolute evidence of the presence or absence of disease. Blood BLOOD SPECIMEN / Unknown 08/20/2024 10:40 AM RACING SECRETARY AND HANDICAPPER 08/20/2024 10:45 AM RACING SECRETARY AND HANDICAPPER Narrative [facility] - 08/21/2024 6:33 AM RACING SECRETARY AND HANDICAPPER FASTING:YES FASTING: YES us Fermin Glynn MD SEND OUTS Final Result [facility] [address] [place] [address], [facility] [address] [place] [address] * (ABNORMAL) LIPID PANEL W REFLEX MEASURED LDL (08/20/2024 10:40 AM RACING SECRETARY AND HANDICAPPER) CHOLESTEROL, TOTAL 222(H) <200 mg/dL [facility] [...] LDL-C. Conrad SS et al. ROXANNE. 2013;310(19): 2563-0192 (http://education.Entrustet/faq/YGO980) CHOL/HDLC RATIO 4.0 <5.0 (calc) [facility] NON HDL CHOLESTEROL 166(H) <130 mg/dL (calc) [facility] Comment: For patients with diabetes plus 1 major ASCVD risk factor, treating to a non-HDL-C goal of <100 mg/dL (LDL-C of <70 mg/dL) is considered a therapeutic option. Blood BLOOD SPECIMEN / Unknown 08/20/2024 10:40 AM RACING SECRETARY AND HANDICAPPER 08/20/2024 10:45 AM RACING SECRETARY AND HANDICAPPER Narrative [facility] - 08/21/2024 4:10 AM RACING SECRETARY AND HANDICAPPER FASTING:YES FASTING: YES Fermin Glynn MD CHEMISTRY Final Result [facility] [address] [place] [address], [facility] [address] [place] [address] * BASIC METABOLIC PANEL (08/20/2024 10:40 AM RACING SECRETARY AND HANDICAPPER) GLUCOSE 91 65 - 99 mg/dL [facility] Comment: Fasting reference interval [...] BLOOD SPECIMEN / Unknown 08/20/2024 10:40 AM RACING SECRETARY AND HANDICAPPER 08/20/2024 10:45 AM RACING SECRETARY AND HANDICAPPER Narrative [facility] - 08/21/2024 4:10 AM RACING SECRETARY AND HANDICAPPER FASTING:YES FASTING: YES Fermin Glynn MD CHEMISTRY Final Result [facility] [address] [place] [address], [facility] [address] [place] [address] * COLONOSCOPY (03/05/2023 8:31 AM CDT) 03/05/2023 [...] candidate for conscious sedation. The endoscope [id number] was passed through the anus andadvanced to [...] 8:31 AM Procedure Code(s): --- Professional --- 05959, Colonoscopy, flexible; with biopsy, single or multiple Diagnosis Code(s): --- Professional --- K50.10, Crohn's disease of large intestine without complications K63.89, Other specified diseases ofintestine CPT copyright 2021 [employer]. All rights reserved. The codes documented in this report are preliminary and upon education assistant reviewmay be revised to meet current compliance requirements. Scope In: 9:34:47 AM Scope Withdrawal Time 0 hours 18 minutes 39 seconds Scope Out: 9:57:37 AM us Conrad Mccoy MD PROCEDURE ORD Final Res ult * ANTI HCV [51521.2] (04/01/2018 9:47 AM CDT) HEPATITIS C ANTIBODY Non-React tonja Non-React tonja 04/01/2018 5:31 PM CDT [facility] Comment:Antibodies to HCV no t detected; does not exclude the possibility of exposure to HCV. Blood BLOOD SPECIMEN / Unknown Venipuncture / Unknown 04/01/2018 9:47 AM CDT 04/01/2018 9:47 AM CDT us Gordo Pollard MD SEND OUTS Final Resu lt [facility] [address] [place] [address], from Last 3 Months or Most Recently Relevant to [place] [address] [facility] ADVANTAGE Advance Directives * Full Code (Latest Code Status on File) Date Activated Date Inactivated Comments 03/11/2024 10:00 AM 03/12/2024 10:44 AM Question Answer Comments Code Status Discussion: Reviewed Preferences Care Teams Tinware Lithograph Press Operator Relationship Specialty Start Date End Date Fermin Glynn MD [address] [place] [address] PCP - General Family Practice 11/02/20
--- OUTSIDE RECORDS SUMMARY | 2024-10-30 18:32 | XMS_ITS | Clinical Summary ---
Author Organization [facility] Address [address] [place] [address] Care Team Providers Care Pump Tester Name Role Phone Gordo Pollard MD Primary [...] as needed. 10 tablet 08/15/2019 12:42 PM GLOVE CUTTER 9 Active oxyCODONE-acetam inophen (PERCOCET) 5-325 mg oral tablet Take 1-2 tablets by mouth every four (4) to six (6) hours as needed for Pain. 3 tablet 08/22/2019 2:38 PM GLOVE CUTTER 9 Active doxycycline monohydrate (ADOXA) 100 mg oral Take 1 each (100 mg) by mouth twice a day with breakfast and dinner. 20 tablet 08/22/2019 2:38 PM GLOVE CUTTER 9 Active Active Problems Problem Noted Date [...] Comments Blood Pressure 150/82 08/22/2019 4:30 PM GLOVE CUTTER Pulse 70 08/22/2019 4:30 PM GLOVE CUTTER Temperature 36.5 C (97.7 F) 08/22/2019 4:30 PM GLOVE CUTTER Respiratory Rate 12 08/22/2019 4:30 PM GLOVE CUTTER Oxygen Saturation 95% 08/22/2019 4:30 PM GLOVE CUTTER Inhaled Oxygen Concentration - - Weight 93 kg (205 lb 0.4 oz) 08/22/2019 11:00 AM GLOVE CUTTER Height 177.8 cm (5' 10) 08/22/2019 11:16 AM GLOVE CUTTER Body Mass Index 29.42 08/22/2019 11:00 AM GLOVE CUTTER Plan of Treatment Health Maintenance Due Date [...] series) 2033 Medical Devices Implanted Type Area Radio Producer Device Identifier Shelf Expiration Date Model / Serial / Lot Cl Dola Titan - [id number] Implanted:Qty: 1 on 08/14/2019 by Nick Mahajan MD at [facility] Penile N/A: Penis Coloplast Isabelle 04/26/2024 [id number] / / [id number] Assembly Kit Titan - [id number] Implanted:Qty: 1 on 08/14/2019 by Nick Mahajan MD at [facility] Supply N/A: Penis Coloplast Isabelle 04/27/2024 [id number] / / [id number] Titan, Infrapubic Zero Degree Angle Cylinder Set With Pump Implanted:Qty: 1 on 08/14/2019 by Nick Mahajan MD at [facility] N/A: Penis Coloplast Isabelle [id number] 12/15/2023 [id number] / / [id number] [place] [address] [facility] [place] [address] Advance Directives For more information, please contact: [phone] * Full Code (Latest Code Status on File) Date Activated Date Inactivated Comments 11/09/2016 10:46 PM 11/13/2016 4:52 PM Question Answer Comments How was code status determined? Patient Care Teams Pump Tester Relationship Specialty Start Date End Date Gordo Pollard MD PCP - General 12/16/18
--- OUTSIDE RECORDS SUMMARY | 2024-10-30 18:32 | XMS_ITS | Referral Summary ---
Author Organization [facility] Address [address] [place] [address] Care Team Providers Care Resort Housekeeper Name Role Phone Gordo Pollard MD Primary [...] as needed. 10 tablet 08/15/2019 12:42 PM DOUBLE END SEWER 9 Active oxyCODONE-acetam inophen (PERCOCET) 5-325 mg oral tablet Take 1-2 tablets by mouth every four (4) to six (6) hours as needed for Pain. 3 tablet 08/22/2019 2:38 PM DOUBLE END SEWER 9 Active doxycycline monohydrate (ADOXA) 100 mg oral Take 1 each (100 mg) by mouth twice a day with breakfast and dinner. 20 tablet 08/22/2019 2:38 PM DOUBLE END SEWER 9 Active Active Problems Problem Noted Date [...] Comments Blood Pressure 150/82 08/22/2019 4:30 PM DOUBLE END SEWER Pulse 70 08/22/2019 4:30 PM DOUBLE END SEWER Temperature 36.5 C (97.7 F) 08/22/2019 4:30 PM DOUBLE END SEWER Respiratory Rate 12 08/22/2019 4:30 PM DOUBLE END SEWER Oxygen Saturation 95% 08/22/2019 4:30 PM DOUBLE END SEWER Inhaled Oxygen Concentration - - Weight 93 kg (205 lb 0.4 oz) 08/22/2019 11:00 AM DOUBLE END SEWER Height 177.8 cm (5' 10) 08/22/2019 11:16 AM DOUBLE END SEWER Body Mass Index 29.42 08/22/2019 11:00 AM DOUBLE END SEWER Plan of Treatment Not on file Medical Devices Implanted Type Area Bottom Pounder Cement Shoes Device Identifier Shelf Expiration Date Model / Serial / Lot Cl [place]rosse Gustabo - [id number] Implanted:Qty: 1 on 08/14/2019 by Nick Mahajan MD at [facility] Penile N/A: Penis Coloplast Isabelle 04/26/2024 [id number] / / [id number] Assembly Kit Gustabo - [id number] Implanted:Qty: 1 on 08/14/2019 by Nick Mahajan MD at [facility] Supply N/A: Penis Coloplast Isabelle 04/27/2024 [id number] / / [id number] Titan, Infrapubic Zero Degree Angle Cylinder Set With Pump Implanted:Qty: 1 on 08/14/2019 by Nick Mahajan MD at [facility] N/A: Penis Coloplast Isabelle [id number] 12/15/2023 [id number] / / [id number] Insurance [place] [id number] [place] [address] Advance Directives For more information, please contact: [phone] * Full Code (Latest Code Status on File) Date Activated Date Inactivated Comments 11/09/2016 10:46 PM 11/13/2016 4:52 PM Question Answer Comments How was code status determined? Patient Care Teams Resort Housekeeper Relationship Specialty Start Date End Date Gordo Pollard MD PCP - General 12/16/18
[2024-10-30 18:38] VITALS: PULSE 68; O2SAT 99
[2024-10-30 18:45] VITALS: PULSE 70; O2SAT 98
[2024-10-30 18:46] VITALS: BP 154/111; PULSE 64; O2SAT 98
[2024-10-30 19:00] VITALS: PULSE 73; O2SAT 97
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
== END 2024-10-30 19:53 | disposition home or self-care (01) ==
PROVIDERS: Emergency Provider Student in an Organized Health Care Education/Training Program; PCP Family Medicine
DX: T88.2XXA Shock due to anesthesia, initial encounter (principal); T41.3X5A Adverse effect of local anesthetics, initial encounter; R06.02 Shortness of breath
CPT/HCPCS: 96372; 96374; 96375; 99284; J0171; J1200; J2919; S0028

== ENCOUNTER 2025-02-09 11:15 | Outpatient (RCR) | payer BC, SELFPAY | END 2025-04-27 14:30 | disposition home or self-care (01) | PROVIDERS: PCP Family Medicine; Visit Provider Family Medicine | DX: M70.41 Prepatellar bursitis, right knee (principal); S89.92XD Unspecified injury of left lower leg, subsequent encounter; M17.0 Bilateral primary osteoarthritis of knee; Z51.89 Encounter for other specified aftercare | CPT/HCPCS: 97110; 97161 ==

== ENCOUNTER 2025-05-14 19:22 | Emergency (ER) | payer BC, SELFPAY ==
--- OUTSIDE RECORDS SUMMARY | 2025-05-14 19:24 | XMS_ITS | Clinical Summary ---
Author Organization [facility] Address [address] [place] [address] Care Team Providers Care Long Chain Beamer Name Role Phone Gordo Pollard MD Primary [...] as needed. 10 tablet 08/15/2019 12:42 PM WATER MECHANIC 9 Active oxyCODONE-acetam inophen (PERCOCET) 5-325 mg oral tablet Take 1-2 tablets by mouth every four (4) to six (6) hours as needed for Pain. 3 tablet 08/22/2019 2:38 PM WATER MECHANIC 9 Active doxycycline monohydrate (ADOXA) 100 mg oral Take 1 each (100 mg) by mouth twice a day with breakfast and dinner. 20 tablet 08/22/2019 2:38 PM WATER MECHANIC 9 Active Active Problems Problem Noted Date Diagnosed Date S/P prostatectomy 11/09/2016 Crohn's disease 11/09/2016 Prostate cancer 11/09/2016 Immunizations Immunization Administration Dates Next Due Influenza recombinant (FluBlok [...] Comments Blood Pressure 150/82 08/22/2019 4:30 PM WATER MECHANIC Pulse 70 08/22/2019 4:30 PM WATER MECHANIC Temperature 36.5 C (97.7 F) 08/22/2019 4:30 PM WATER MECHANIC Respiratory Rate 12 08/22/2019 4:30 PM WATER MECHANIC Oxygen Saturation 95% 08/22/2019 4:30 PM WATER MECHANIC Inhaled Oxygen Concentration - - Weight 93 kg (205 lb 0.4 oz) 08/22/2019 11:00 AM WATER MECHANIC Height 177.8 cm (5' 10) 08/22/2019 11:16 AM WATER MECHANIC Body Mass Index 29.42 08/22/2019 11:00 AM WATER MECHANIC Plan of Treatment Health Maintenance Due Date Last Done Comments AAA Ultrasound Screening 1960 Colonoscopy 1960 Hepatitis C Screening 1960 Lipid Screening 1960 Depression Assessment (PHQ-2) 1959 Pneumococcal 50+ Years (1 of 1 - PCV) 02/29/2008 Zoster Vaccine (1 of 2) 02/29/2008 Yearly Review of HCD 08/19/2020 08/20/2019, 07/06/2019, 04/24/2019, Additional history exists COVID-19 Vaccine (2023- season) 2024 Adult Tetanus Booster 01/17/2025 01/17/2015 , 08/26/2003, 05/21/1991 Influenza Vaccine (#1) 2025 9, 09/02/2016, 07/09/2016, Additional history exists RSV Vaccines (1 - 1-dose 75+ series) 2033 Meningococcal B Vaccine Aged Out No l onger eligible based on patient's age to complete this topic Medical Devices Implanted Type Area Gas Station Clerk Device Identifier Shelf Expiration Date Model / Serial / Lot Cl [place] Lionelan - [id number] Implanted:Qty: 1 on 08/14/2019 by Nick Mahajan MD at [facility] Penile N/A: Penis Coloplast Isabelle 04/26/2024 [id number] / / [id number] Assembly Kit Titan - [id number] Implanted:Qty: 1 on 08/14/2019 by Nick Mahajan MD at [facility] Supply N/A: Penis Coloplast Isabelle 04/27/2024 [id number] / / [id number] Titan, Infrapubic Zero Degree Angle Cylinder Set With Pump Implanted:Qty: 1 on 08/14/2019 by Nick Mahajan MD at [facility] N/A: Penis Coloplast Isabelle [id number] 12/15/2023 [id number] / / [id number] [place] [address] [facility] [address] Advance Directives For more information, please contact: [phone] * Full Code (Latest Code Status on File) Date Activated Date Inactivated Comments 11/09/2016 10:46 PM 11/13/2016 4:52 PM Question Answer Comments How was code status determined? Patient Care Teams Long Chain Beamer Relationship Specialty Start Date End Date Gordo Pollard MD PCP - General 12/16/18
--- OUTSIDE RECORDS SUMMARY | 2025-05-14 19:24 | XMS_ITS | Clinical Summary ---
Author Organization [facility] Address [address] [place] [id number] Care Team Providers Care Railroad Switchman Name Role Phone Fermin Glynn MD Primary Care Provider Allergies Active Allergy Reactions Criticality Noted Date Comments Dust Mites Low 04/16/2011 Lidocaine Other - Describe In Comment Field 04/26/2025 Question anaphylaxis Pollen Extracts Runny Nose 01/02/2019 Ragweed Pollen [...] per actuation) nasal solution (FLONASE) Inhale 1 [place] into affected nostril(s) once daily. Active CPAPIndications: AICHA (obstructive sleep apnea) CPAP machine for home use at pressure 7-15cmw, CPAP mask- mask of choice, fit to comfort one per 3 months 1 Each 01/30/20 24 Active fluticasone propion-salmeter oL (Wixela Inhub) 250-50 mcg/Dose diskus inhalerIndicatio ns:Mild persistent asthma, unspecified whether complicated (HC) INHALE 1 PUFF BY MOUTH TWICE DAILY 180 Each 3 08/10/20 24 Active citalopram (CELEXA) 20 mg tabletIndication s:Vitamin D deficiency Take 1 Tablet (20 mg) by mouth once daily in the morning. 90 Tablet 3 09/08/20 24 Active albuterol HFA (PRO-AIR; VENTOLIN; PROVENTIL) 90 mcg/actuation inhalerIndicatio ns:Mild persistent asthma without complication (HC) INHALE 1 TO 2 PUFFS BY MOUTH EVERY 4 HOURS NEEDED FOR SHORTNESS OF BREATH 6.7 g 1 09/11/20 24 Active omeprazole (PRILOSEC) 20 mg Delayed-Release capsuleIndicatio ns:Gastroesophag eal reflux disease with esophagitis without hemorrhage Take 1 Capsule (20 mg) by mouth once daily before a meal. Take 30-60 minutes before a meal/food once a day. 90 Capsule 3 10/19/19 25 Active mesalamine (LIALDA) 1.2 gram delayed-release tabletIndication s:Crohn's disease of both small and large intestine without complication (HC) TAKE 4 TABLETS(4.8 GRAMS) BY MOUTH DAILY WITH A MEAL 360 Tablet 3 04/26/20 25 Active mesalamine (LIALDA) 1.2 gram delayed-release tabletIndication s:Crohn's disease of both small and large intestine without complication (HC) Take 4 Tablets (4.8 g) by mouth once daily with a meal. 360 Tablet 3 03/18/20 24 025 Discontinued Active Problems Problem Noted Date Diagnosed Date GERD (gastroesophageal reflux disease) Overview (10/19/2024): EGD 10/2024 reflux, try omeprazole [...] Encounters Date Type Department Care Team Description 05/12/2025 11:00 AM CDT Office Visit [facility] [address] [facility] [address] [place] [address] Carri Fenton PA Foot Pain/problem (Left foot ) 05/12/2025 Travel 05/07/2025 Travel 04/26/2025 12:45 PM CDT Ancillary Procedure [address] [address] 04/26/2025 12:30 PM CDT Ancillary Procedure [address] [address] 04/26/2025 11:45 AM CDT Office Visit [address] [address] Fermin Glynn MD Foot Problem (LT foot- 6 months- between the toes - ); Shoulder Pain/problem (Lt shoulder- hurting for while ); Knee Pain/problem (Rt knee- bursa ) 04/26/2025 Orders Only [address] [address] Fermin Glynn MD <No scans attached> 04/26/2025 Travel 04/23/[address] [address] Conrad Mccoy MD Refill Request (Mesalamine) 04/21/2025 Travel from Last 3 Months Immunizations Immunization Administration Dates Next Due COVID-19 VACCINE SPIKEVAX [...] on file Legal Sex Male 5:49 AM MANAGING PRINCIPAL Gender Identity Not on file Sexual Orientation Not on file Occupation Industry Job Start Date Job End Date Not on file Not on file Not on file Not on file Obstetrics History Last Filed Vital Signs Vital Sign Reading Time Taken Comments Blood Pressure 122/76 04/26/2025 11:51 AM CDT Pulse 59 04/26/2025 11:51 AM CDT Temperature 36.7 C (98 F) 03/12/2024 8:00 AM CDT Respiratory Rate 16 03/12/2024 8:00 AM CDT Oxygen Saturation 98% 04/26/2025 11: 51 AM CDT Inhaled Oxygen Concentration - - Weight 87.9 kg (193 lb 12.8 oz) 025 11:51 AM CDT Height 177 cm (5' 9.69) 10/09/2024 10: 32 AM MANAGING PRINCIPAL Body Mass Index 28.06 10/09/2024 10:32 AM MANAGING PRINCIPAL Plan of Treatment Health Maintenance Due Date Last Done Comments RSV vaccine for adults or (1 - Risk 60-74 years 1-dose series) 2018 AAA screening age 65-74 2023 COVID-19 vaccine series ( season) 2025 09/08/2024, 08/29/2022, 01/11/2022, Additional history exists Influenza Vaccine (#1) 2025 , 08/29/2022, 07/22/2021, Additional history exists Depression screening for age [...] Additional history exists Hepatitis C screening for age 18-79 Completed 04/01/2018 Zoster (shingles) series for age 50+ Completed 07/05/2020, 04/22/2020 Pneumococcal series for age 50+ Completed 01/11/2022 Hepatitis B series for 19+ Aged Out N o longer eligible based on patient's age to complete this topic Medical Devices Implanted Type Area Yarn Mercerizer Operator Helper Device Identifier Shelf Expiration Date Model / Serial / Lot Stent Sinus 8mm Propel Contour Bioabsorb - [id number] Implanted:Qty: 2 on 03/11/2024 by Brea Lord MD at [facility] To Be Determine d: Nose [employer] 09/03/2025 [id number] / / [id number] Procedures Procedure Name Priority Date/Time Associated Diagnosis Comments XR FOOT 3 VIEWS LEFT Routine 04/26/2025 12:34 PM CDT Foot pain, left XR SHOULDER 3 VIEWS LEFT Routine 04/26/2025 12:33 PM CDT Chronic left shoulder pain LIPID PANEL W REFLEX MEASURED LDL Routine 08/20/2024 10:40 AM MANAGING PRINCIPAL Hyperlipidemia, unspecified hyperlipidemia type COLONOSCOPY 03/05/2023 8:31 AM CDT ANTI HCV Routine 04/01/2018 9:47 AM CDT Need for hepatitis C screening test from Last 3 Months or Most Recently Relevant to Health Maintenance Results * XR FOOT 3 VIEWS LEFT (04/26/2025 12:34 PM CDT) Anatomical Region Laterality Modality FEET, FOOT L Computed Radiogr aphy 04/26/2025 1:51 PM CDT Impressions 04/26/2025 1:51 PM CDT 1. No acute osseous injuries or abnormalities are noted. Dictated by Ubaldo Salazar MD @ 04/26/2025 1:51:25 PM Dictated by: Ubaldo Salazar MD @ 04/26/2025 13:51:28 (Electronically Signed) Narrative 04/26/2025 1:51 PM CDT For Patients: As a result of the Cures Act, medical imaging exams and procedure reports are released immediately into your electronic medical record. You may view this report before your referring provider. If you have questions, please contact your health care provider. INDICATION: Foot pain, left TECHNIQUE: Foot radiograph 3 views left COMPARISON: None FINDINGS: Bone: No acute fractures or aggressive bone lesions are identified. A small accessory navicular bone is noted. A corticated ossicle is seen along the superior aspect of the talonavicular joint on the lateral view. Joint: The visualized hindfoot, midfoot, and forefoot joints are unremarkable in appearance. No significant ankle effusion is seen. Soft tissue: Unremarkable. No radiopaque foreign bodies are seen. Procedure Note Ubaldo Salazar MD - 04/26/2025 For Patients: As a result of the Cures Act, medical imagingexams and procedure reports are released immediately into your electronicmedical record. You may view this report before your referring provider.If you have questions, please contact your health care provider. INDICATION: Foot pain, left TECHNIQUE: Foot radiograph 3 views left COMPARISON: None FINDINGS: Bone: No acute fractures or aggressive bone lesions are identified. Asmall accessory navicular bone is noted. A corticated ossicle is seenalong the superior aspect of the talonavicular joint on the lateral view. Joint: The visualized hindfoot, midfoot, and forefoot joints areunremarkable in appearance. No significant ankle effusion is seen. Soft tissue: Unremarkable. No radiopaque foreign bodies are seen. IMPRESSION: 1. No acute osseous injuries or abnormalities are noted. Dictated by Ubaldo Salazar MD @ 04/26/2025 1:51:25 PM Dictated by: Ubaldo Salazar MD @ 04/26/2025 13:51:28 (Electronically Signed) Fermin Glynn MD GENERAL IMAGING Final Result * XR SHOULDER 3 VIEWS LEFT (04/26/2025 12:33 PM CDT) Anatomical Region Laterality Modality SHOULDERS, SHOULDER L Computed R adiography 04/26/2025 1:50 PM CDT Impressions 04/26/2025 1:50 PM CDT 1. No acute osseous injuries or abnormalities are noted. Dictated by: Ubaldo Salazar MD @ 04/26/2025 13:50:55 (Electronically Signed) Narrative 04/26/2025 1:50 PM CDT For Patients: As a result of the Cures Act, medical imaging exams and procedure reports are released immediately into your electronic medical record. You may view this report before your referring provider. If you have questions, please contact your health care provider. INDICATION: Chronic left shoulder pain TECHNIQUE: Shoulder radiograph 3 views left COMPARISON: None FINDINGS: Bone: No acute fractures or aggressive bone lesions are identified. Moderate diffuse osteopenia is noted. Joint: The glenohumeral joint is unremarkable. The acromioclavicular joint is unremarkable. Soft tissue: Unremarkable. The visualized hemithorax is unremarkable in appearance. No radiopaque foreign bodies are seen. Procedure Note Ubaldo Salazar MD - 04/26/2025 For Patients: As a result of the Cures Act, medical imagingexams and procedure reports are released immediately into your electronicmedical record. You may view this report before your referring provider.If you have questions, please contact your health care provider. INDICATION: Chronic left shoulder pain TECHNIQUE: Shoulder radiograph 3 views left COMPARISON: None FINDINGS: Bone: No acute fractures or aggressive bone lesions are identified.Moderate diffuse osteopenia is noted. Joint: The glenohumeral joint is unremarkable. The acromioclavicular jointis unremarkable. Soft tissue: Unremarkable. The visualized hemithorax is unremarkable inappearance. No radiopaque foreign bodies are seen. IMPRESSION: 1. No acute osseous injuries or abnormalities are noted. Dictated by: Ubaldo Salazar MD @ 04/26/2025 13:50:55 (Electronically Signed) Fermin Glynn MD GENERAL IMAGING Final Result * (ABNORMAL) LIPID PANEL W REFLEX MEASURED LDL (08/20/2024 10:40 AM MANAGING PRINCIPAL) CHOLESTEROL, TOTAL 222(H) <200 mg/dL [facility] [...] equation in the estimation of LDL-C. Conrad PEDROZA et al. ROXANNE. 2013;310(19): 9573-1628 (http://education.BOSS Metrics/faq/SPX740) CHOL/HDLC RATIO 4.0 <5.0 (calc) [facility] Avinash NON HDL CHOLESTEROL 166(H) <130 mg/dL (calc) [facility] Comment: For patients with diabetes plus 1 major ASCVD risk factor, treating to a non-HDL-C goal of <100 mg/dL (LDL-C of <70 mg/dL) is considered a therapeutic option. Blood BLOOD SPECIMEN / Unknown 08/20/2024 10:40 AM MANAGING PRINCIPAL 08/20/2024 10:45 AM MANAGING PRINCIPAL Narrative [facility] - 08/21/2024 4:10 AM MANAGING PRINCIPAL FASTING:YES FASTING: YES us Fermin Glynn MD CHEMISTRY Final Result [facility] [address] [place] [address], [facility] [address] [place] [address] * COLONOSCOPY (03/05/2023 8:31 AM CDT) 03/05/2023 [...] candidate for conscious sedation. The endoscope [id number] was passed through the anus andadvanced to [...] 8:31 AM Procedure Code(s): --- Professional --- 80960, Colonoscopy, flexible; with biopsy, single or multiple Diagnosis Code(s): --- Professional --- K50.10, Crohn's disease of large intestine without complications K63.89, Other specified diseases ofintestine CPT copyright 2021 [employer]. All rights reserved. The codes documented in this report are preliminary and upon physician coder reviewmay be revised to meet current compliance requirements. Scope In: 9:34:47 AM Scope Withdrawal Time 0 hours 18 minutes 39 seconds Scope Out: 9:57:37 AM us Conrad Mccoy MD PROCEDURE ORD Final Res ult * ANTI HCV [37383.2] (04/01/2018 9:47 AM CDT) HEPATITIS C ANTIBODY Non-React tonja Non-React tonja 04/01/2018 5:31 PM CDT [facility] Comment:Antibodies to HCV no t detected; does not exclude the possibility of exposure to HCV. Blood BLOOD SPECIMEN / Unknown Venipuncture / Unknown 04/01/2018 9:47 AM CDT 04/01/2018 9:47 AM CDT us Gordo Pollard MD SEND OUTS Final Resu lt [facility] [address] [place] [address], [place] from Last 3 Months or Most Recently Relevant to Health Maintenance Insurance [facility] [place] [address] [facility] [employer] Advance Directives * Full Code (Latest Code Status on File) Date Activated Date Inactivated Comments 03/11/2024 10:00 AM 03/12/2024 10:44 AM Question Answer Comments Code Status Discussion: Reviewed Preferences Care Teams Railroad Switchman Relationship Specialty Start Date End Date Fermin Glynn MD [address] [place] [address] PCP - General Family Practice 11/02/20
[2025-05-14 19:27] VITALS: BP 112/68; PULSE 75; RESP 18; TEMP 36.7; O2SAT 89; BMI 27.6
--- NOTE | 2025-05-14 19:35 | ED.ALLEREA ---
HPI - Allergic Reaction General Time Seen by Provider: 19:35 Date Seen: 05/14/25 Chief complaint: Allergic Reaction Stated complaint: Allergic reaction Time Seen by Provider: 05/14/25 19:35 Source: patient and family Mode of arrival: ambulatory Limitations: no limitations History of Present Illness HPI narrative: 65-year-old male who comes in with concern for allergic reaction. Patient notes about 30 minutes prior to coming the emergency department he was out playing with the dog, noticed some throat tightening, itching, swelling of the hands. Unknown trigger, had similar when exposed to lidocaine several months ago. Denies abdominal pain, nausea, vomiting. Did not take anything for this reaction at home. Related Data Home Medications ?Medication ?Instructions ?Recorded ?Confirmed citalopram 20 mg tablet 20 mg PO 07/08/22 10/30/24 ipratropium bromide 21 mcg (0.03 ml intranasal 07/08/22 10/30/24 %) nasal spray mesalamine 1.2 gram tablet,delayed tab PO 07/08/22 10/30/24 release fexofenadine 180 mg tablet 180 mg PO Q24H 04/29/23 10/30/24 (Jennifer Allergy) omeprazole 20 mg capsule,delayed mg PO DAILY 10/30/24 10/30/24 release Previous Rx's ?Medication ?Instructions ?Recorded epinephrine 0.3 mg/0.3 mL 0.3 mg (0.3 mL) IM Q5-15M PRN #2 ea 10/30/24 injection, auto-injector (Auvi-Q) prednisone 20 mg tablet 40 mg (2 x 20 mg) PO DAILY #8 tabs 10/30/24 Allergies Allergy/AdvReac Type Severity Reaction Status Date / Time lidocaine Allergy Intermediate rash Verified 05/14/25 19:30 [facility] Surgical History Status post prostatectomy ?Z90.79 - Acquired absence of other genital organ(s) (ICD-10) Social History Smoking Status: Former smoker Do you use any of these nicotine containing products: None Second hand tobacco smoke exposure: No How often do you have a drink containing alcohol: never AUDIT-C Alcohol total score: 0 Non-prescribed substance use: denies use Exam Narrative: Exam Narrative: General: Well-developed and well-nourished, no acute distress Head: Atraumatic and normocephalic Eyes: Pupils are equal reactive, extraocular motions intact, conjunctiva clear ENT: External nose and ears are normal, no posterior pharyngeal swelling, mild lip swelling Neck: No midline cervical tenderness, full spontaneous range of motion the neck, trachea midline, no adenopathy Heart: Regular rate and rhythm no murmurs or thrills Lungs: Mild expiratory wheezes bilaterally Abdomen: Soft, nontender, nondistended with active bowel sounds Musculoskeletal: No tenderness, deformity, or edema Neurologic: Awake, alert, and oriented x3, no gross focal neurologic deficits, cranial nerves intact as tested Psych: Mood and affect are appropriate Skin: Mild diffuse erythema of the arms and chest Const: Vital Signs, click to edit/add: Vital Signs - 24 hr 05/14/25 19:27 Temperature 98.1 F Pulse Rate [Left P ulse Oximeter] 75 Respiratory Rate 18 Blood Pressure [Ri ght Upper Arm] 112/68 Pulse Oximetry 89 Oxygen Delivery Me thod Room Air Course Course ED Course: Reviewed prior office visit and emergency department visit from October 2024 when patient was seen allergic reaction after having lidocaine for repair of a scalp wound. Was treated with Benadryl, epinephrine, Pepcid, and Solu-Medrol at that time with improvement of symptoms. Patient presents today with concern for allergic reaction. Patient noted this started about 30 minutes prior arrival, he was outside playing with his dogs started feeling a tickle in his throat as well as swelling on his hands and itching. On exam here, oxygen saturation 99% on room air, mild expiratory wheezes, mild lip swelling, no voice changes, no stridor, swelling of the hands with some erythema of the chest and upper extremities. Symptoms are most consistent with anaphylaxis. Epinephrine, Solu-Medrol, Benadryl, Pepcid given and will monitor in the department. Reevaluation(s) Time of Reevaluation #1: 20:06 Reevaluation #1: Patient recheck, feeling better, still clearing the throat a little bit, oxygen saturation 97% on room air. Discussed plan to observe patient in the department for couple hours and anticipate discharge Time of Reevaluation #2: 21:19 Reevaluation #2: Patient recheck, feeling back to normal and stable for discharge. Vital Signs Vital signs: Initial Vital Signs Temperature 98.1 F 05/14/25 19:27 Temperature Source Temporal Artery Scan 05/14/25 19:27 Pulse Rate 75 05/14/25 19:27 Pulse Rhythm Regular 05/14/25 19:27 Respiratory Rate 18 05/14/25 19:27 Blood Pressure 112/68 05/14/25 19:27 Blood Pressure Mean 82 05/14/25 19:27 Blood Pressure Position Sitting 05/14/25 19:27 Pulse Oximetry 89 05/14/25 19:27 Oxygen Delivery Method Room Air 05/14/25 19:27 Vital Signs Temperature 98.1 F 05/14/25 19:27 Pulse Rate 75 05/14/25 19:27 Respiratory Rate 18 05/14/25 19:27 Blood Pressure 112/68 05/14/25 19:27 Pulse Oximetry 89 05/14/25 19:27 Oxygen Delivery Method Room Air 05/14/25 19:27 Temperature 98.1 F 05/14/25 19:27 Pulse Rate 75 05/14/25 19:27 Respiratory Rate 18 05/14/25 19:27 Blood Pressure 112/68 05/14/25 19:27 Pulse Oximetry 89 05/14/25 19:27 Oxygen Delivery Method Room Air 05/14/25 19:27 Medications Administered Medications: Discontinued Medications Generic Name Dose Route Start Last Admin Trade Name Vipulq PRN Reason Stop Dose Admin Albuterol/Ipratropium 1 neb 05/14/25 19:40 05/14/25 19:47 Iprat-Albut 0.5-2.5 Mg/3 Ml Neb IH 05/14/25 19:41 1 neb ONCE ONE Administration Diphenhydramine HCl 50 mg 05/14/25 19:40 05/14/25 19:47 Diphenhydramine 50 Mg/Ml Inj IVP 05/14/25 19:41 50 mg ONCE ONE Administration Epinephrine HCl 0.3 mg 05/14/25 19:40 05/14/25 19:46 Epinephrine 0.3 Mg Pen IM 05/14/25 19:41 0.3 mg ONCE ONE Administration Famotidine 20 mg 05/14/25 19:40 05/14/25 19:46 Famotidine 10 Mg/Ml Inj IVP 05/14/25 19:41 20 mg ONCE ONE Administration Methylprednisolone Sodium Succinate 125 mg 05/14/25 19:40 05/14/25 19:53 Methylprednisolone Sod Succ 62.5 Mg/Ml (125) IVP 05/14/25 19:41 125 mg ONCE ONE Administration Critical Care Time Critical Care Time Critical Care Time: Yes (Anaphylaxis, epinephrine and Benadryl given) Attestation: The patient required my highest level preparedness to intervene emergently and I personally spent this critical care time directly and personally managing the patient. This critical care time included: Obtaining a history; Examining the patient; Pulse oximetry; Ordering and reviewing of studies; Arranging urgent treatment with development of a management plan; Evaluation of patients response to treatment; Frequent reassessment discussions with other providers. This critical care time was performed to assess and manage the high probability of imminent life-threatening deterioration that could result in multiorgan failure. It was exclusive of separate billable procedures and treating other patients and teaching time. Total Critical Care Time in Minutes: 35 Discharge Plan Discharge Clinical Impression: Anaphylaxis Patient Disposition: Home, Self-Care Condition: Improved Instructions: General Allergic Reaction (ED) Additional Instructions: Continue Benadryl 50 mg every 6 hours for 24 hours, and then is every 6 hours as needed Take Zyrtec (cetirizine) 10 mg daily for 7 days Take prednisone as prescribed starting tomorrow morning Use albuterol inhaler as needed for wheezing or cough Activity Level: Activity as Tolerated Discharge Diet: Regular Prescriptions: No Action mesalamine 1.2 gram tablet,delayed release (DR/EC) PO ipratropium bromide 21 mcg (0.03 %) spray,non-aerosol intranasal citalopram 20 mg tablet 20 mg PO fexofenadine [Jennifer Allergy] 180 mg tablet 180 mg PO Q24H omeprazole 20 mg capsule,delayed release(DR/EC) PO DAILY epinephrine [Auvi-Q] 0.3 mg/0.3 mL auto-injector 0.3 mg IM Q5-15M PRNQty: 2 0RF Rx Instructions: do not exceed 3 doses per episode prednisone 20 mg tablet 40 mg PO DAILY Qty: 8 0RF Rx Instructions: Start prednisone on 10/30/2024 Follow Up/Referrals: Fermin Glynn MD [Primary Care Provider, Family Practice] Stand Alone Forms: KIT digital Info Instructions
[2025-05-14] MEDS: FAMOTIDINE 10 MG/ML inj 20 MG IVP (19:46)
[2025-05-14] MEDS: EPINEPHrine 0.3 MG PEN IM (19:46)
[2025-05-14] MEDS: IPRAT-ALBUT 0.5-2.5 MG/3 ML NEB 1 NEB IH (19:47)
[2025-05-14] MEDS: METHYLPREDNISOLONE SOD SUCC 62.5 MG/ML (125) 125 MG IVP (19:53)
== END 2025-05-14 21:27 | disposition home or self-care (01) ==
PROVIDERS: Emergency Provider Family Medicine; PCP Family Medicine
DX: T78.2XXA Anaphylactic shock, unspecified, initial encounter (principal)
CPT/HCPCS: 99283; 99291; J0169; J1200; J1308; J2919

== ENCOUNTER 2025-06-09 22:32 | Emergency (ER) | payer BC, SELFPAY ==
--- OUTSIDE RECORDS SUMMARY | 2025-06-09 22:35 | XMS_ITS | Clinical Summary ---
Author Organization [facility] Address [address] [place] [address] Care Team Providers Care Learning Support Aide Name Role Phone Fermin Glynn MD Primary Care Provider Allergies Active Allergy Reactions Criticality Noted Date Comments Dust Mites Low 04/16/2011 Lidocaine Other - Describe In Comment Field 04/26/2025 Question anaphylaxis Pollen Extracts Runny Nose 01/02/2019 Ragweed Pollen Wheezing 05/26/2019 Medications fexofenadine (TANG) 180 mg tablet Take 1 tablet by mouth. One tab PO Q HS X 2 month supply 60 tablet 3 1 Active ipratropium (ATROVENT NASAL) 21 mcg (0.03 %) nasal sprayIndications: Post-nasal drip USE 2 SPRAYS IN EACH NOSTRIL THREE TIMES DAILY 90 mL 3 3 Active fluticasone (50 mcg per actuation) nasal solution (FLONASE) Inhale 1 [place] into affected nostril(s) once daily. Active CPAPIndications:O SA (obstructive sleep apnea) CPAP machine for home use at pressure 7-15cmw, CPAP mask- mask of choice, fit to comfort one per 3 months 1 Each 4 Active fluticasone propion-salmetero L (Wixela Inhub) 250-50 mcg/Dose diskus inhalerIndication s:Mild persistent asthma, unspecified whether complicated (HC) INHALE 1 PUFF BY MOUTH TWICE DAILY 180 Each 3 4 Active citalopram (CELEXA) 20 mg tabletIndications :Vitamin D deficiency Take 1 Tablet (20 mg) by mouth once daily in the morning. 90 Tablet 3 4 Active albuterol HFA (PRO-AIR; VENTOLIN; PROVENTIL) 90 mcg/actuation inhalerIndication s:Mild persistent asthma without complication (HC) INHALE 1 TO 2 PUFFS BY MOUTH EVERY 4 HOURS NEEDED FOR SHORTNESS OF BREATH 6.7 g 1 4 Active omeprazole (PRILOSEC) 20 mg Delayed-Release capsuleIndication s:Gastroesophagea l reflux disease with esophagitis without hemorrhage Take 1 Capsule (20 mg) by mouth once daily before a meal. Take 30-60 minutes before a meal/food once a day. 90 Capsule 3 5 Active mesalamine (LIALDA) 1.2 gram delayed-release tabletIndications :Crohn's disease of both small and large intestine without complication (HC) TAKE 4 TABLETS(4.8 GRAMS) BY MOUTH DAILY WITH A MEAL 360 Tablet 3 5 Active Active Problems Problem Noted Date Diagnosed [...] Encounters Date Type Department Care Team Description 06/08/2025 Travel 05/12/2025 11:00 AM CDT Office Visit [facility] [address] [place] [address] Carri Fenton PA Foot Pain/problem (Left foot ) 05/12/2025 Travel 05/07/2025 Travel 04/26/2025 12:45 PM CDT Ancillary Procedure [address] [address] 04/26/2025 12:30 PM CDT Ancillary Procedure [facility] [address] [place] [address] 04/26/2025 11:45 AM CDT Office Visit [address] [address] Fermin Glynn MD Foot Problem (LT foot- 6 months- between the toes - ); Shoulder Pain/problem (Lt shoulder- hurting for while ); Knee Pain/problem (Rt knee- bursa ) 04/26/2025 Orders Only [address] [address] Fermin Glynn MD <No scans attached> 04/26/2025 Travel 04/23/[address] [address] Conrad Mccoy MD Refill Request (Mesalamine) 04/21/2025 Travel from Last 3 Months Immunizations Immunization Administration Dates Next Due COVID-19 VACCINE SPIKEVAX (M ODERNA 50MCG/0.5ML) 12YO+ PFS 09/08/2024 COVID-19 vaccine (Moderna 100mcg/0.5mL) PF, MDV 08/30/2021,01/25/2021,12/19/2020 COVID-19 vaccine (XimoXi-Bio NTech 30mcg/0.3mL) 12YO+ VIDYA-SUCROSE PF, MDV 01/11/2022 [...] on file Legal Sex Male 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 Gender Identity Not on file Sexual Orientation [...] cm (5' 9.69) 10/09/2024 10: 32 AM STATION INSTALLER Body Mass Index 28.06 10/09/2024 10:32 AM STATION INSTALLER Plan of Treatment Upcoming Encounters Date Type Department Care Team (Late st Contact Info) Description 06/10/2025 10:20 AM CDT Office Visit [facility] [address] [place] [address] Efe Rivera MD [address] [facility] [address] [place], [place] [id number] 06/11/2025 11:45 AM CDT Ancillary Procedure [facility] [address] [place] [facility] [place] [address] Health Maintenance Due Date Last Done Comments [...] this topic Medical Devices Implanted Type Area Bundle Person Device Identifier Shelf Expiration Date Model / Serial / Lot Stent Sinus 8mm Propel Contour Bioabsorb - [id number] Implanted:Qty: 2 on 03/11/2024 by Brea Lord MD at [facility] Determine d: Nose [employer] 09/03/2025 [id number] / / [id number] Procedures Procedure Name Priority Date/Time Associated Diagnosis Comments XR FOOT 3 VIEWS LEFT Routine 04/26/2025 12:34 PM CDT Foot pain, left XR SHOULDER 3 VIEWS LEFT Routine 04/26/2025 12:33 PM CDT Chronic left shoulder pain LIPID PANEL W REFLEX MEASURED LDL Routine 08/20/2024 10:40 AM 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 Conrad PEDROZA et al. ROXANNE. 2013;310(19): 4862-4864 (http://education.HipSwap.Reffpedia/faq/ZHZ999) CHOL/HDLC RATIO 4.0 <5.0 (calc) [facility] Avinash NON HDL CHOLESTEROL 166(H) <130 mg/dL (calc) [facility] Da Silva Comment: For patients with diabetes plus 1 major ASCVD risk factor, treating to a non-HDL-C goal of <100 mg/dL (LDL-C of <70 mg/dL) is considered a therapeutic option. Blood BLOOD SPECIMEN / Unknown 08/20/2024 10:40 AM STATION INSTALLER 08/20/2024 10:45 AM STATION INSTALLER Narrative [facility] - 08/21/2024 4:10 AM STATION INSTALLER FASTING:YES FASTING: YES Fermin Glynn MD CHEMISTRY Final Result [facility] [facility] [address] [place] [address], [employer] [address] * COLONOSCOPY (03/05/2023 8:31 AM CDT) 03/05/2023 [...] candidate for conscious sedation. The endoscope [id number] was passed through the anus andadvanced to [...] 8:31 AM Procedure Code(s): --- Professional --- 36551, Colonoscopy, flexible; with biopsy, single or multiple Diagnosis Code(s): --- Professional --- K50.10, Crohn's disease of large intestine without complications K63.89, Other specified diseases ofintestine CPT copyright 2021 [employer]. All rights reserved. The codes documented in this report are preliminary and upon cobol application developer reviewmay be revised to meet current compliance requirements. Scope In: 9:34:47 AM Scope Withdrawal Time 0 hours 18 minutes 39 seconds Scope Out: 9:57:37 AM Conrad Mccoy MD PROCEDURE ORD Final Res ult * ANTI HCV [38319.2] (04/01/2018 9:47 AM CDT) HEPATITIS C ANTIBODY Non-React tonja Non-React tonja 04/01/2018 5:31 PM CDT [facility] [employer] [facility] Comment:Antibodies to HCV no t detected; does not exclude the possibility of exposure to HCV. Blood BLOOD SPECIMEN / Unknown Venipuncture / Unknown 04/01/2018 9:47 AM CDT 04/01/2018 9:47 AM CDT Gordo Pollard MD SEND OUTS Final Resu lt [facility] [address] [place] [address], from Last 3 Months or Most Recently Relevant to Health [place] [address] [facility] [employer] Advance Directives * Full Code (Latest Code Status on File) Date Activated Date Inactivated Comments 03/11/2024 10:00 AM 03/12/2024 10:44 AM Question Answer Comments Code Status Discussion: Reviewed Preferences Care Teams Learning Support Aide Relationship Specialty Start Date End Date Fermin Glynn MD [address] [place] [address] PCP - General Family Practice 11/02/20
--- OUTSIDE RECORDS SUMMARY | 2025-06-09 22:35 | XMS_ITS | Clinical Summary ---
Author Organization [facility] Address [address] [place] [address] Care Team Providers Care Household Coordinator Name Role Phone Gordo Pollard MD Primary [...] as needed. 10 tablet 08/15/2019 12:42 PM SOLE STAPLER WELT 9 Active oxyCODONE-acetam inophen (PERCOCET) 5-325 mg oral tablet Take 1-2 tablets by mouth every four (4) to six (6) hours as needed for Pain. 3 tablet 08/22/2019 2:38 PM SOLE STAPLER WELT 9 Active doxycycline monohydrate (ADOXA) 100 mg oral Take 1 each (100 mg) by mouth twice a day with breakfast and dinner. 20 tablet 08/22/2019 2:38 PM SOLE STAPLER WELT 9 Active Active Problems Problem Noted Date [...] Comments Blood Pressure 150/82 08/22/2019 4:30 PM SOLE STAPLER WELT Pulse 70 08/22/2019 4:30 PM [employer]LE ST[employer]ER WELT Temperature 36.5 C (97.7 F) 08/22/2019 4:30 PM [employer]LE ST[employer]ER WELT Respiratory Rate 12 08/22/2019 4:30 PM [employer]LE STAP[employer]ER WELT Oxygen Saturation 95% 08/22/2019 4:30 PM SOLE STAPLER WELT Inhaled Oxygen Concentration - - Weight 93 kg (205 lb 0.4 oz) 08/22/2019 11:00 AM SOLE STAPLER WELT Height 177.8 cm (5' 10) 08/22/2019 11:16 AM SOLE STAPLER WELT Body Mass Index 29.42 08/22/2019 11:00 AM SOLE STAPLER WELT Plan of Treatment Health Maintenance Due Date Last Done Comments AAA Ultrasound Screening 1960 Colonoscopy 1960 Hepatitis C Screening 1960 Lipid Screening 1960 Depression Assessment (PHQ-2) 1959 Pneumococcal 50+ Years (1 of 1 - PCV) 02/29/2008 Zoster Vaccine (1 of 2) 02/29/2008 Yearly Review of HCD 08/19/2020 08/20/2019, 07/06/2019, 04/24/2019, Additional history exists Adult Tetanus Booster 01/17/2025 01/17/2015 , 08/26/2003, 05/21/1991 COVID-19 Vaccine ( - 2023- season) 2025 Influenza Vaccine (#1) 2025 9, 09/02/2016, 07/09/2016, Additional history exists RSV Vaccines (1 - 1-dose 75+ series) 2033 Meningococcal B Vaccine Aged Out No l onger eligible based on patient's age to complete this topic Medical Devices Implanted Type Area Rubber Mill Operator Device Identifier Shelf Expiration Date Model / Serial / Lot Cl [place] Lionelan - [id number] Implanted:Qty: 1 on 08/14/2019 by Nick Mahajan MD at [facility] Penile N/A: Penis Coloplast Isabelle 04/26/2024 [id number] / / [id number] Assembly Kit Titan - [id number] Implanted:Qty: 1 on 08/14/2019 by Nick Mahajan MD at [facility] Supply N/A: Penis Coloplast Isabelle 04/27/2024 [id number] / / [id number] Titan, Infrapubic Zero Degree Angle Cylinder Set With Pump Implanted:Qty: 1 on 08/14/2019 by Nick Mahajan MD at [facility] N/A: Penis Coloplast Isabelle [id number] 12/15/2023 [id number] / / [id number] [place] [address] [facility] [address] Advance Directives For more information, please contact: [phone] * Full Code (Latest Code Status on File) Date Activated Date Inactivated Comments 11/09/2016 10:46 PM 11/13/2016 4:52 PM Question Answer Comments How was code status determined? Patient Care Teams Household Coordinator Relationship Specialty Start Date End Date Gordo Pollard MD PCP - General 12/16/18
[2025-06-09 22:42] VITALS: BP 143/78; PULSE 66; RESP 18; TEMP 36.6; O2SAT 96; BMI 27.3
--- NOTE | 2025-06-09 22:44 | ED.ALLEREA ---
HPI - Allergic Reaction General Time Seen by Provider: 22:44 Date Seen: 06/09/25 Chief complaint: Allergic Reaction Stated complaint: anaphylactic shock Time Seen by Provider: 06/09/25 22:44 Source: patient Mode of arrival: ambulatory History of Present Illness HPI narrative: Froy is a 65-year-old male with a past medical history of recurrent episodes of allergic reaction/anaphylactic shock who presents to the emergency department from home with his spouse for evaluation of anaphylactic shock. Patient reports that around 2219 he had an episode (similar to prior episodes) in which he suddenly felt itchy and get extremely red. Patient states that symptoms started on his arms and then went up to his throat, groin, palms, neck, and face. Patient states that just prior to this he did a nettypot and fluticasone inhaler. (both of which patient has tolerated in the past). Patient states that due to his symptoms and history of anaphylactic shock he took an EpiPen and came in for further evaluation. Patient notes that he has had 2 prior episodes once back in October which he thought was possibly related to lidocaine as he just had stitches placed in his head. Another episode back in May (he was playing with a dog). Patient has an appointment tomorrow with an audio visual arts director for testing. Patient currently reports feeling flushed/warm, itching, notes itchy throat, some shortness of breath but also states that he believes the EPI he took is helping. No other complaints. Related Data Home Medications ?Medication ?Instructions ?Recorded ?Confirmed citalopram 20 mg tablet 20 mg PO 07/08/22 10/30/24 ipratropium bromide 21 mcg (0.03 ml intranasal 07/08/22 10/30/24 %) nasal spray mesalamine 1.2 gram tablet,delayed tab PO 07/08/22 10/30/24 release fexofenadine 180 mg tablet 180 mg PO Q24H 04/29/23 10/30/24 (Jennifer Allergy) omeprazole 20 mg capsule,delayed mg PO DAILY 10/30/24 10/30/24 release fluticasone 250 mcg-salmeterol 50 1 ea inhalation BID 06/09/25 06/09/25 mcg/dose blistr powdr for inhalation Previous Rx's ?Medication ?Instructions ?Recorded epinephrine 0.3 mg/0.3 mL 0.3 mg (0.3 mL) IM Q5-15M PRN #2 ea 10/30/24 injection, auto-injector (Auvi-Q) prednisone 20 mg tablet 40 mg (2 x 20 mg) PO DAILY #8 tabs 10/30/24 prednisone 20 mg tablet 40 mg (2 x 20 mg) PO DAILY 5 days 06/10/25 #10 tabs Allergies Allergy/AdvReac Type Severity Reaction Status Date / Time lidocaine Allergy Intermediate rash Verified 05/14/25 19:30 Review of Systems Narrative Past medical history, past surgical history, medications, allergies, family history, and social history were reviewed with the patient. No additional pertinent items. A medically appropriate review of systems was performed with pertinent positives and negatives noted in HPI, all other systems negative. [facility] Surgical History Status post prostatectomy ?Z90.79 - Acquired absence of other genital organ(s) (ICD-10) Social History Smoking Status: Former smoker Do you use any of these nicotine containing products: None Second hand tobacco smoke exposure: No How often do you have a drink containing alcohol: never AUDIT-C Alcohol total score: 0 Non-prescribed substance use: denies use Exam Narrative: Exam Narrative: General: Afebrile, in distress HEENT: Normocephalic, atraumatic, conjunctiva normal. posterior pharynx with uvula midline, no asymmetry, no swelling, MMM Neck: non-tender, supple Cardio: regular rate. regular rhythm Resp: No increased work of breathing, mild respiratory distress, lungs with few scattered wheezes Chest/Back: no visual signs of trauma, no midline tenderness, no CVA tenderness Abdomen: soft, non distension, no tenderness, no peritoneal signs Neuro: alert and fully oriented. CN II-XII grossly intact. Grossly normal strength and sensation in all extremities. MSK: no deformities. Normal range of motion Integumentary/Skin: Face, trunk, upper extremities flushed Psych: normal affect, normal behavior Const: Vital Signs, click to edit/add: Vital Signs - 24 hr 06/09/25 22:42 06/09/25 23:01 06/09/25 23:06 Temperature 97.8 F Pulse Rate 61 Pulse Rate [Pulse Oximeter] 66 Respiratory Rate 18 18 Blood Pressure 104/91 H Blood Pressure [Ri ght Upper Arm] 143/78 H Pulse Oximetry 96 95 100 Oxygen Delivery Me thod Room Air 06/09/25 23:17 06/09/25 23:35 06/09/25 23:47 Temperature Pulse Rate 60 63 66 Pulse Rate [Pulse Oximeter] Respiratory Rate 15 17 18 Blood Pressure 124/79 157/81 H 141/74 H Blood Pressure [Ri ght Upper Arm] Pulse Oximetry 97 100 100 Oxygen Delivery Me thod 06/10/25 00:02 Temperature Pulse Rate 61 Pulse Rate [Pulse Oximeter] Respiratory Rate 18 Blood Pressure 127/87 Blood Pressure [Ri ght Upper Arm] Pulse Oximetry 98 Oxygen Delivery Me thod Course Vital Signs Vital signs: Initial Vital Signs Temperature 97.8 F 06/09/25 22:42 Temperature Source Temporal Artery Scan 06/09/25 22:42 Pulse Rate 66 06/09/25 22:42 Respiratory Rate 18 06/09/25 22:42 Blood Pressure 143/78 H 06/09/25 22:42 Blood Pressure Mean 99 06/09/25 22:42 Blood Pressure Position Sitting 06/09/25 22:42 Pulse Oximetry 96 06/09/25 22:42 Oxygen Delivery Method Room Air 06/09/25 22:42 Vital Signs Temperature 97.8 F 06/09/25 22:42 Pulse Rate 66 06/09/25 22:42 Respiratory Rate 18 06/09/25 22:42 Blood Pressure 143/78 H 06/09/25 22:42 Pulse Oximetry 96 06/09/25 22:42 Oxygen Delivery Method Room Air 06/09/25 22:42 Temperature 97.8 F 06/09/25 22:42 Pulse Rate 61 06/10/25 00:02 Respiratory Rate 18 06/10/25 00:02 Blood Pressure 127/87 06/10/25 00:02 Pulse Oximetry 98 06/10/25 00:02 Oxygen Delivery Method Room Air 06/09/25 22:42 Medications Administered Medications: Discontinued Medications Generic Name Dose Route Start Last Admin Trade Name Freq PRN Reason Stop Dose Admin Albuterol/Ipratropium 1 neb 06/09/25 23:05 06/09/25 23:29 Iprat-Albut 0.5-2.5 Mg/3 Ml Neb IH 06/09/25 23:06 1 neb ONCE ONE Administration Diphenhydramine HCl 50 mg 06/09/25 23:03 06/09/25 23:23 Diphenhydramine 50 Mg/Ml Inj IVP 06/09/25 23:04 50 mg ONCE ONE Administration Famotidine 20 mg 06/09/25 23:03 06/09/25 23:11 Famotidine 10 Mg/Ml Inj IVP 06/09/25 23:04 20 mg ONCE ONE Administration Methylprednisolone Sodium Succinate 125 mg 06/09/25 23:03 06/09/25 23:17 Methylprednisolone Sod Succ 62.5 Mg/Ml (125) IVP 06/09/25 23:04 125 mg ONCE ONE Administration MDM - Allergic Reaction MDM Narrative Medical decision making narrative: Froy is a 65-year-old male with a past medical history of recurrent episodes of allergic reaction/anaphylactic shock who presents to the emergency department from home with his spouse for evaluation of anaphylactic shock. Upon arrival patient is ill but nontoxic appearing, afebrile, in distress. Patient is flushed in the face, trunk, upper extremities. Patient reports some shortness of breath and itchy throat. Patient took EpiPen prior to arrival. Upon arrival to the emergency department IV was established, patient was placed a monitoring coordinator, and was treated with IV Pepcid, Solu-Medrol, Benadryl, and DuoNeb. Given patient's history of anaphylactic shock, epinephrine given prior to arrival, will plan for continuous cardiac monitoring close monitoring of symptoms in the emergency department for the next several hours. Patient monitored in the emergency department for 4 hours with no worsening of symptoms. Patient reports significant improvement of symptoms after medications and is requesting discharge home. Patient with no shortness of breath, skin with no urticaria, no longer flushed, patient with no respiratory distress, lungs are clear to auscultation bilaterally. Patient has a follow-up this morning at 10:00 a.m. with an audio visual arts director. Plan for discharge, recommend prednisone daily, [id number] allergy daily, patient does have epi pens at home and does not need a prescription at this time. Strict return precautions discussed. Patient understands and agrees the plan. Differential Diagnosis Differential diagnosis: Likely anaphylaxis, allergic reaction, angioedema, contact dermatitis, adverse reaction to drug, viral enanthem and urticaria Medical Records Attestation: I reviewed the patient's medical records. Critical Care Time Critical Care Time Critical Care Time: Yes Attestation: The patient required my highest level preparedness to intervene emergently and I personally spent this critical care time directly and personally managing the patient. This critical care time included: Obtaining a history; Examining the patient; Pulse oximetry; Ordering and reviewing of studies; Arranging urgent treatment with development of a management plan; Evaluation of patients response to treatment; Frequent reassessment discussions with other providers. This critical care time was performed to assess and manage the high probability of imminent life-threatening deterioration that could result in multiorgan failure. It was exclusive of separate billable procedures and treating other patients and teaching time. Total Critical Care Time in Minutes: 45 Discharge Plan Discharge Clinical Impression: Allergic reaction, Anaphylaxis Patient Disposition: Home, Self-Care Condition: Improved Additional Instructions: Please follow-up this morning at your appointment with your audio visual arts director. Please also follow-up with your primary care provider. Please call to schedule appointment. Please continue your own medications. Please take [id number] daily allergy medication (ex: zyrtec, etc). Please take steroids daily as directed. Please use EpiPen as needed. Return to the emergency department if any worsening symptoms. It was a pleasure taking care of you today. We hope you feel better soon. Prescriptions: New prednisone 20 mg tablet 40 mg PO DAILY 5 Days Qty: 10 0RF No Action mesalamine 1.2 gram tablet,delayed release (DR/EC) PO ipratropium bromide 21 mcg (0.03 %) spray,non-aerosol intranasal citalopram 20 mg tablet 20 mg PO fexofenadine [Jennifer Allergy] 180 mg tablet 180 mg PO Q24H omeprazole 20 mg capsule,delayed release(DR/EC) PO DAILY epinephrine [Auvi-Q] 0.3 mg/0.3 mL auto-injector 0.3 mg IM Q5-15M PRNQty: 2 0RF Rx Instructions: do not exceed 3 doses per episode prednisone 20 mg tablet 40 mg PO DAILY Qty: 8 0RF Rx Instructions: Start prednisone on 10/30/2024 fluticasone propion-salmeterol 250-50 mcg/dose blister with device 1 ea inhalation BID Follow Up/Referrals: Fermin Glynn MD [Primary Care Provider, Family Practice] Stand Alone Forms: [facility] Info Instructions
[2025-06-09 23:01] VITALS: BP 104/91; PULSE 61; RESP 18; O2SAT 95
[2025-06-09 23:06] VITALS: O2SAT 100
[2025-06-09] MEDS: FAMOTIDINE 10 MG/ML inj 20 MG IVP (23:11)
[2025-06-09 23:17] VITALS: BP 124/79; PULSE 60; RESP 15; O2SAT 97
[2025-06-09] MEDS: METHYLPREDNISOLONE SOD SUCC 62.5 MG/ML (125) 125 MG IVP (23:17)
[2025-06-09] MEDS: IPRAT-ALBUT 0.5-2.5 MG/3 ML NEB 1 NEB IH (23:29)
[2025-06-09 23:35] VITALS: BP 157/81; PULSE 63; RESP 17; O2SAT 100
[2025-06-09 23:47] VITALS: BP 141/74; PULSE 66; RESP 18; O2SAT 100
[2025-06-10] VITALS (7 sets, daily range): BP systolic 111–152; BP diastolic 67–87; PULSE 58–68; RESP 12–23; TEMP 36.6; O2SAT 94–98
== END 2025-06-10 02:02 | disposition home or self-care (01) ==
PROVIDERS: Emergency Provider Emergency Medicine; PCP Family Medicine
DX: T78.2XXA Anaphylactic shock, unspecified, initial encounter (principal); T78.40XA Allergy, unspecified, initial encounter
CPT/HCPCS: 94761; 96374; 96375; 99285; 99291; J1200; J1308; J2919